=== PATIENT | female | born 1960 | race Caucasian/White ===

== ENCOUNTER → 2017-08-25 12:53 | Outpatient (CLI) | payer BC, SELFPAY | PROVIDERS: PCP Family Medicine; Visit Provider Family Medicine | DX: N39.0 Urinary tract infection, site not specified (principal); Z53.9 Procedure and treatment not carried out, unspecified reason ==

== ENCOUNTER → 2018-04-03 09:49 | Outpatient (CLI) | payer BC, SELFPAY ==
--- NOTE | 2018-04-03 | DI.MG.S_ITS ---
BILATERAL DIGITAL SCREENING MAMMOGRAM 3D/2D WITH CAD: 04/03/2018 CLINICAL: Routine screening. Comparison is made to exams dated: 02/16/2017 mammogram, 02/14/2016 mammogram, and 04/24/2014 mammogram - [facility]. There are scattered fibroglandular elements in both breasts. Current study was also evaluated with a Computer Aided Detection (CAD) system. There is a focal asymmetry in the right breast at 4 o'clock middle depth. No other significant masses, calcifications, or other findings are seen in either breast. IMPRESSION: INCOMPLETE: NEEDS ADDITIONAL IMAGING EVALUATION The focal asymmetry in the right breast is indeterminate. Additional views with possible ultrasound are recommended. This exam was interpreted at Station ID: [id number]. NOTE: For mammograms, a report in lay terms will be sent to the patient. Approximately 15% of breast malignancies will not be visualized mammographically. In the management of a palpable breast mass, a negative mammogram must not discourage biopsy of a clinically suspicious lesion. Electronically Signed By: Heaven bolivar/sandro:04/05/2018 10:07:18 letter sent: Additional Imaging Needed ACR BI-RADS Category 0: Incomplete [id number]
== END ==
PROVIDERS: PCP Student in an Organized Health Care Education/Training Program; Visit Provider Student in an Organized Health Care Education/Training Program
DX: Z12.31 Encounter for screening mammogram for malignant neoplasm of breast (principal)
CPT/HCPCS: 77063; 77067

== ENCOUNTER → 2018-04-21 14:09 | Outpatient (CLI) | payer BC, SELFPAY ==
--- NOTE | 2018-04-21 14:14 | DI.MG.S_ITS ---
UNILATERAL RIGHT DIGITAL DIAGNOSTIC MAMMOGRAM 3D/2D WITH ADDITIONAL VIEWS: 04/21/2018 CLINICAL: Additional evaluation requested from prior study. Comparison is made to exams dated: 04/03/2018 mammogram, 02/16/2017 mammogram, and 02/14/2016 mammogram - [facility]. There are scattered fibroglandular elements in right breast. Previously identified focal asymmetry in the right breast at 4 o'clock middle depth on comparison screening mammograms persists with additional views. There are adjacent calcifications and surrounding architectural distortion best seen on RSCCBTO (spot RCC tomosynthesis) image . IMPRESSION: INCOMPLETE: NEEDS ADDITIONAL IMAGING EVALUATION Previously identified focal asymmetry in the right breast at 4 o'clock middle depth with associated architectural distortion and calcifications on comparison screening mammograms persists with additional views. A targeted ultrasound is recommended for further evaluation, and will be performed immediately following this exam. This exam was interpreted at Station ID: [id number]. NOTE: For mammograms, a report in lay terms will be sent to the patient. Approximately 15% of breast malignancies will not be visualized mammographically. In the management of a palpable breast mass, a negative mammogram must not discourage biopsy of a clinically suspicious lesion. Electronically Signed By: Layton Ortiz M.D. ecl/:04/21/2018 16:06:32 letter sent: Additional Imaging Needed ACR BI-RADS Category 0: Incomplete [id number]
--- NOTE | 2018-04-21 14:14 | DI.US.S_ITS ---
LIMITED ULTRASOUND OF RIGHT BREAST: 04/21/2018 CLINICAL: Patient returns for additional imaging over a suspected abnormality in the right breast. Comparison is made to exams dated: 04/21/2018 mammogram, 04/03/2018 mammogram, and 02/16/2017 mammogram - [facility]. Real-time and Doppler ultrasound of the right breast lower inner quadrant were performed. Sow scale images of the real-time examination were reviewed. There is 1.5 cm x 1.2 cm x 0.8 cm irregular mass with an indistinct margin in the right breast at 4 o'clock 5 cm from the nipple. This irregular mass is hypoechoic with internal echoes and posterior acoustic enhancement. This may or may not correlate with mammography findings. Color flow imaging demonstrates that there is no vascularity present. Targeted ultrasound of the right axilla demonstrates no lymphadenopathy. IMPRESSION: SUSPICIOUS OF MALIGNANCY The 1.5 cm x 1.2 cm x 0.8 cm irregular mass versus cluster of irregular microcysts in the right breast is at a low suspicion for malignancy. An ultrasound guided biopsy is recommended. Post-biopsy correlation of the location of the clip with the location of the architectural distortion seen in the inner right breast seen on diagnostic mammography recommended; consider stereotactic biopsy if the ultrasound detected mass does not correlate with the distortion seen on mammography. These results and recommendations were discussed with the patient at the time of the exam by the [facility] Radiologist Dr. Irving Cesar in person. This exam was interpreted at Station ID: [id number]. Electronically Signed By: Layton Ortiz M.D. ecl/:04/21/2018 16:51:51 letter sent: Biopsy Required Ultrasound BI-RADS: 4a Suspicious abnormality - low suspicion for malignancy
== END ==
PROVIDERS: PCP Student in an Organized Health Care Education/Training Program; Visit Provider Student in an Organized Health Care Education/Training Program
DX: R92.8 Other abnormal and inconclusive findings on diagnostic imaging of breast (principal); N64.89 Other specified disorders of breast
CPT/HCPCS: 76642; 77065; G0279

== ENCOUNTER → 2018-05-03 08:22 | Outpatient (CLI) | payer BC, SELFPAY ==
--- NOTE | 2018-05-03 | DI.US.S_ITS ---
PROCEDURE: US BX BREAST PERC W VAC DEVICE COMPARISON: None. INDICATIONS: RIGHT BREAST MASS FINDINGS: IMPRESSION: Dictated by: Navid Lui M.D. on 05/03/2018 at 14:16 Approved by: Navid Lui M.D. on 05/03/2018 at 14:17
--- NOTE | 2018-05-03 | PATH_ITS ---
[facility] Accession Number: [id number] . 01 Material submitted: . RIGHT BREAST . 01 Clinical history: . MASS, 4 O'CLOCK, 5CM FROM NIPPLE . 02 Diagnosis: Right Breast, 4 o'clock Mass, 5 cm from Nipple, Core Needle Biopsies: Benign breast parenchyma with microcysts, usual ductal hyperplasia, fibroadenomatoid changes, apocrine metaplasia, and fibrosis, consistent with fibrocystic change. Microcalcifications not identified. Negative for atypical hyperplasia, in situ or invasive carcinoma. [facility]/05/04/2018 . 02 Electronically signed: . Tasneem Ldeesma MD, Pathologist NPI- [id number] . 01 Gross description: . Received one formalin-filled container labeled with the patient's name and designated right breast mass 4 o'clock, 5 cm from nipple. The specimen is received with plastic filter in container, sample loose in container. The specimen consists of multiple yellow-lane portions of tissue, which aggregate to 1.5 x 1.0 x 0.3 cm. The specimen is entirely submitted in one cassette. Collection date is 05/03/2018. Collection time per container is 0920. Total fixation time is 12 hours up to 24. ([facility]:[id number]) /[facility] . 02 Pathologist provided ICD-10: N63.10 . 02 CPT . 804522 Performed at: 01 [facility] [address] [facility], [place], [place] [id number] MD Rene Gómez MD Phone: [phone] Performed at: 02 [facility] [address] [place], [place] [id number] MD Tasneem Ledesma MD Phone: [phone]
--- NOTE | 2018-05-03 | DI.MG.S_ITS ---
UNILATERAL RIGHT DIGITAL DIAGNOSTIC MAMMOGRAM POST-NEEDLE BIOPSY: 05/03/2018 CLINICAL: Post clip placement. Right breast mass. Comparison is made to exams dated: 04/21/2018 mammogram, 04/03/2018 mammogram, and 02/16/2017 mammogram - [facility]. There are scattered fibroglandular elements in right breast. There is a marker clip in the appropriate position in the right breast at 4 o'clock middle depth. This is demonstrated by prior ultrasound. IMPRESSION: POST PROCEDURE MAMMOGRAM FOR MARKER PLACEMENT There was a successful marker clip placement in the right breast middle depth. This exam was interpreted at Station ID: [id number]. NOTE: For mammograms, a report in lay terms will be sent to the patient. Approximately 15% of breast malignancies will not be visualized mammographically. In the management of a palpable breast mass, a negative mammogram must not discourage biopsy of a clinically suspicious lesion. Electronically Signed By: Navid churchill/:05/03/2018 09:53:07 ACR BI-RADS Category Post-procedure mammogram for marker placement
== END ==
PROVIDERS: PCP Student in an Organized Health Care Education/Training Program; Visit Provider Student in an Organized Health Care Education/Training Program
DX: N60.31 Fibrosclerosis of right breast (principal); N60.81 Other benign mammary dysplasias of right breast; D24.1 Benign neoplasm of right breast
CPT/HCPCS: 19083; 77065

== ENCOUNTER → 2018-05-28 10:52 | Outpatient (CLI) | payer BC, SELFPAY ==
[2018-05-28 11:35] LABS: Add Manual Diff / Slide Review NO; Basophils Absolute Auto 100 /uL (0-100); Eosinophils Absolute Auto 200 /uL (0-450); Eosinophils Percent Auto 3.2 % (2-4); Hematocrit 45.1 % (36-46); Hemoglobin 14.6 g/dL (12.0-16.0); Lymphocytes Absolute Auto 2200 /uL (1100-4500); Lymphocytes Percent Auto 29.8 % (25-40); Mean Corpuscular HGB Conc 32.5 % (30-36); Mean Corpuscular Hemoglobin 27.3 PG (26-34); Mean Corpuscular Volume 84.1 fL (80-100); Monocytes Absolute Auto 300 /uL (0-900); Monocytes Percent Auto 3.7 % (3-14); Neutrophils Absolute Auto 4600 /uL (1500-7000); Neutrophils Percent Auto 62.3 % (50-75); Platelet Count 262 X10^3/uL (150-400); Red Blood Cell Count 5.36 X10^6/uL (4.0-5.2); Red Cell Distribution Width 14.1 % (11.6-14.8); White Blood Cell Count 7.4 X10^3/uL (4.5-11.0)
[2018-05-28 12:15] LABS: Alanine Aminotransferase 26 IU/L (9-52); Albumin 4.5 g/dL (3.5-5.0); Albumin Globulin Ratio 1.5 (1.0-2.8); Alkaline Phosphatase 74 U/L (38-126); Aspartate Aminotransferase 24 IU/L (14-36); BUN Creatinine Ratio 21.4 (6-22); Bilirubin Total 0.4 mg/dL (0.2-1.3); Blood Urea Nitrogen 15 mg/dL (7-17); Calcium 9.5 mg/dL (8.4-10.2); Carbon Dioxide 24 mmol/L (22-32); Chloride 103 mmol/L (98-107); Estimated Glomerular Filt Rate > 60.0 mL/min (>60); Glucose 106 mg/dL (70-100); HEMOLYSIS < 15 (0-50); Potassium 4.2 mmol/L (3.4-5.1); Sodium 140 mmol/L (137-145); Total Protein 7.5 g/dL (6.3-8.2)
[2018-05-28 12:31] LABS: Vitamin D 25 Hydroxy (D3) 37.6 ng/mL (30.0-100.0)
[2018-05-28 13:05] LABS: TSH w/ Reflex to FT4 1.09 uIU/mL (0.47-4.68)
== END ==
PROVIDERS: PCP Student in an Organized Health Care Education/Training Program; Visit Provider Student in an Organized Health Care Education/Training Program
DX: E55.9 Vitamin D deficiency, unspecified (principal); I10 Essential (primary) hypertension; J32.9 Chronic sinusitis, unspecified; R63.5 Abnormal weight gain; Z79.899 Other long term (current) drug therapy
CPT/HCPCS: 36415; 80053; 82306; 84443; 85025

== ENCOUNTER → 2018-06-18 11:15 | Outpatient (CLI) | payer BC, SELFPAY ==
[2018-06-18 12:27] LABS: Add Manual Diff / Slide Review NO; Basophils Absolute Auto 100 /uL (0-100); Basophils Percent Auto 0.9 % (0-2); Eosinophils Absolute Auto 200 /uL (0-450); Eosinophils Percent Auto 3.2 % (2-4); Hematocrit 43.3 % (36-46); Hemoglobin 13.9 g/dL (12.0-16.0); Lymphocytes Absolute Auto 2600 /uL (1100-4500); Lymphocytes Percent Auto 34.8 % (25-40); Mean Corpuscular HGB Conc 32.1 % (30-36); Mean Corpuscular Hemoglobin 26.7 PG (26-34); Mean Corpuscular Volume 83.2 fL (80-100); Monocytes Absolute Auto 300 /uL (0-900); Monocytes Percent Auto 4.2 % (3-14); Neutrophils Absolute Auto 4200 /uL (1500-7000); Neutrophils Percent Auto 56.9 % (50-75); Platelet Count 280 X10^3/uL (150-400); Red Cell Distribution Width 14.3 % (11.6-14.8); White Blood Cell Count 7.5 X10^3/uL (4.5-11.0)
== END ==
PROVIDERS: Registered Nurse; PCP Student in an Organized Health Care Education/Training Program; Visit Provider Student in an Organized Health Care Education/Training Program
DX: M71.9 Bursopathy, unspecified (principal)
CPT/HCPCS: 36415; 85025

== ENCOUNTER → 2018-06-22 13:29 | Outpatient (CLI) | payer BC, SELFPAY ==
[2018-06-26 18:27] LABS: ANCA Screen Negative (Negative)
== END ==
PROVIDERS: PCP Student in an Organized Health Care Education/Training Program; Visit Provider Student in an Organized Health Care Education/Training Program
DX: J34.89 Other specified disorders of nose and nasal sinuses (principal)
CPT/HCPCS: 36415; 86021

== ENCOUNTER → 2019-01-05 12:47 | Outpatient (CLI) | payer BC, MEDICARE, SELFPAY ==
--- NOTE | 2019-01-05 12:50 | DI.RAD.S_ITS ---
PROCEDURE: XR HIP W PEL IF DONE LT MIN 4V INDICATIONS: radicular pain/lower back pain TECHNIQUE: AP pelvis with lateral view(s) of the bilateral hip(s). COMPARISON: [facility], , HIP 2V RIGHT, 12/12/2008, 18:29. FINDINGS: Bones: No fractures or dislocations. Pelvic ring appears intact. No suspicious bony lesions. Posterior spinal fixation hardware is partially visualized. Soft tissues: The visualized bowel gas pattern is normal. No suspicious soft tissue calcifications. IMPRESSION: No acute radiographic findings. If there is continued pain, followup exam or additional imaging such as MRI or CT could be performed for further assessment. Dictated by: Heaven Trinh M.D. on 01/05/2019 at 17:39 Approved by: Heaven Trinh M.D. on 01/05/2019 at 17:40
--- NOTE | 2019-01-05 12:50 | DI.RAD.S_ITS ---
PROCEDURE: XR LUMBAR SPINE MIN 4V INDICATIONS: radicular pain/lower back pain TECHNIQUE: 5 views of the lumbar spine were acquired. COMPARISON: [facility], MR, L-SPINE WITHOUT CONTRAST, 10/11/2013, 17:13. [facility], CT, KIDNEY/ URETER/BLADDER, 12/20/2007, 8:17. FINDINGS: Bones: There are 5 [id number] lumbar vertebral bodies. Patient is status post posterior fixation and discectomy at L4-5 and L5-S1. There is grade I L1 on L2 retrolisthesis and grade I L4 on L5 anterolisthesis. Intervertebral disc space narrowing, osteophytosis, and facet sclerosis is present throughout the lumbar spine. Soft tissues: Overlying bowel gas pattern is normal. No suspicious soft tissue calcifications. Oblique images: No pars defects were visualized. L4-5 and L5-S1 are poorly characterize given postsurgical changes. IMPRESSION: Spondylolisthesis as above. No definite findings to suggest spondylolysis; however L4-5 and L5-S1 are poorly characterized given postsurgical changes. Dictated by: Heaven Trinh M.D. on 01/05/2019 at 17:40 Approved by: Heaven Trinh M.D. on 01/05/2019 at 17:53
== END ==
PROVIDERS: PCP Student in an Organized Health Care Education/Training Program; Visit Provider Physical Medicine & Rehabilitation
DX: M54.5 Low back pain (principal); M54.16 Radiculopathy, lumbar region; M53.3 Sacrococcygeal disorders, not elsewhere classified; G89.29 Other chronic pain; Z98.1 Arthrodesis status
CPT/HCPCS: 72110; 73522

== ENCOUNTER → 2019-01-11 17:19 | Outpatient (CLI) | payer BC, MEDICARE, SELFPAY ==
--- NOTE | 2019-01-11 17:33 | DI.MRI.S_ITS ---
PROCEDURE: MR LUMBAR SPINE WO CON INDICATIONS: LOW BACK AND LEFT HIP PAIN. Sacroiliac dysfunction. Pain greater than 3 months. Acute exacerbation of chronic low back. This TECHNIQUE: Noncontrast sagittal T1 spin echo and T2 fast echo, sagittal STIR, axial T1 and T2 fast spin echo through the lumbar spine. Axial and oblique coronal T1 spin echo and STIR through the sacrum. In cases with scoliosis, additional coronal T2 fast spin echo may be performed. COMPARISON: [facility], MR, L-SPINE WITHOUT CONTRAST, 10/11/2013, 17:13. [facility], CR, XR LUMBAR SPINE MIN 4V, 01/05/2019, 15:59. [facility], MR, L-SPINE WITHOUT CONTRAST, 03/08/2012, 16:55. [facility], MR, L-SPINE WITHOUT CONTRAST, 10/23/2010, 8:41. [facility], MR, L-SPINE WITHOUT CONTRAST, 11/16/2008, 9:03. FINDINGS: Image quality: Excellent. Alignment and Curvature: There is grade 1 anterolisthesis seen at L4-L5. Minimal retrolisthesis is seen at T12-L1, L1-L2, and L3-L4. Bone Marrow: Marrow is of normal overall signal. No acute vertebral body compression fractures. No sacral fractures. Spinal Cord: Conus medullaris terminates at the L1 level. Visualized cord demonstrates normal signal and size. Paraspinous Soft Tissues: No paravertebral masses. T12-L1: Moderate to severe loss of disc height and disc signal are seen. Bridging endplate osteophytes are seen. Moderate generalized disc bulge is seen. At least moderate bilateral neural foraminal narrowing is seen. When comparison is made with the prior examination, these findings are similar. L1-L2: Moderate loss of disc height is seen. Loss of disc signal is seen. Moderate disc bulge is seen, with a central/left disc extrusion, with inferior migration of the disc material. Moderate facet joint hypertrophy is seen. Moderate to severe bilateral neural foraminal narrowing is seen. There is a degree of compression seen upon the exiting nerve roots. Moderate to severe central canal narrowing is seen. These imaging findings have progressed compared to the prior study. L2-L3: Mild to moderate loss of disc height and disc signal are seen. Moderate bulge is seen, which is eccentric to the right. There is moderate to severe right-sided and mild left-sided facet hypertrophy seen. There is moderate to severe right-sided neural foraminal narrowing seen, with a degree of compression upon the exiting right L2 nerve root. There is moderate left-sided neural foraminal narrowing seen. Moderate central canal narrowing is seen. These imaging findings have progressed compared to the prior study. L3-L4: Mild to moderate loss of disc height and disc signal are seen. Moderate to prominent disc bulge is seen, which is eccentric to the right. Moderate facet hypertrophy is seen. There is moderate to severe bilateral neural foraminal narrowing seen, right worse than left. There is a degree of compression seen upon the exiting nerve roots. Moderate to severe central canal narrowing is seen. These degenerative findings are worse than in 2014. L4-L5: Moderate to severe loss of disc height and disc signal are seen. A disc spacer is seen at this level. Severe facet hypertrophy is seen. Moderate to severe bilateral neural foraminal narrowing is seen, left worse than right. There is a degree of compression seen upon the exiting nerve roots. Moderate to severe central canal narrowing is seen. These degenerative changes are worse than on the prior MRI. L5-S1: Moderate to severe loss of disc height and disc signal are seen. There is a disc spacer is seen at this level. Moderate generalized disc bulge is seen. Moderate to prominent facet hypertrophy is seen. Moderate to severe bilateral neural foraminal narrowing is seen, with associated bilateral nerve root compression. There is moderate to severe central canal narrowing seen. These imaging findings have progressed compared to the prior study. Sacrum: No significant abnormality of the sacrum can be seen. No significant sacroiliac joint edema can be seen. No abnormalities of the sacral plexus are detected. IMPRESSION: Multiple levels of prominent lumbar spine degenerative change are seen, which have clearly progressed compared to 2014. There is a central/left extrusion seen at the L1-L2 level, with inferior migration of disc material. Dictated by: Alexi Russell M.D. on 01/12/2019 at 8:10 Approved by: Alexi Russell M.D. on 01/12/2019 at 8:20
== END ==
PROVIDERS: Family Provider Student in an Organized Health Care Education/Training Program; PCP Student in an Organized Health Care Education/Training Program; Visit Provider Registered Nurse
DX: M25.552 Pain in left hip (principal); M47.816 Spondylosis without myelopathy or radiculopathy, lumbar region; M51.26 Other intervertebral disc displacement, lumbar region; M53.3 Sacrococcygeal disorders, not elsewhere classified
CPT/HCPCS: 72148

== ENCOUNTER → 2019-03-03 12:04 | Outpatient (CLI) | payer BC, MEDICARE, SELFPAY ==
[2019-03-03 12:44] LABS: Bacteria Urine None Seen; WBC Urine None Seen (0-5/HPF)
[2019-03-03 13:13] LABS: Erythrocyte Sedimentation Rate 6 MM/HR (0-20)
[2019-03-03 13:41] LABS: Appearance Urine UA CLOUDY; Bilirubin Urine UA NEGATIVE (NEGATIVE); Color Urine UA YELLOW; Glucose Urine UA NEGATIVE (Negative); Ketones Urine UA NEGATIVE (NEGATIVE); Leukocyte Esterase Urine UA NEGATIVE (NEGATIVE); Nitrite Urine UA NEGATIVE (Negative); Occult Blood Urine UA 3+ (Negative); Protein Urine UA TRACE (Negative); Specific Gravity Urine UA 1.015 (1.000-1.035); Urobilinogen Urine UA 0.2 E.U./dL (0.2)
[2019-03-03 14:08] LABS: pH Urine UA 7.5 (4.5-8.0)
[2019-03-03 14:11] LABS: RBC Urine 30-100/HPF (0-5/HPF)
[2019-03-03 14:12] LABS: Culture Indicated Urine Cult Not Indicated; Squamous Epithelial Cell Urine 5-10 /HPF (0-5/HPF)
[2019-03-03 14:28] LABS: Alanine Aminotransferase 23 IU/L (<35); Albumin 4.1 g/dL (3.5-5.0); Albumin Globulin Ratio 1.8 (1.0-2.8); Alkaline Phosphatase 70 U/L (38-126); Aspartate Aminotransferase 31 IU/L (14-36); BUN Creatinine Ratio 28.3 (6-22); Bilirubin Total 0.5 mg/dL (0.2-1.3); Blood Urea Nitrogen 17 mg/dL (7-17); Calcium 9.8 mg/dL (8.4-10.2); Carbon Dioxide 25 mmol/L (22-32); Chloride 101 mmol/L (98-107); Estimated Glomerular Filt Rate > 60.0 mL/min (>60); Gamma Glutamyl Transpeptidase 47 U/L (12-43); Globulin 2.3 g/dL (1.7-4.1); Glucose 109 mg/dL (70-100); HEMOLYSIS 49 (0-50); Potassium 4.5 mmol/L (3.4-5.1); Sodium 137 mmol/L (137-145); Total Protein 6.4 g/dL (6.3-8.2)
[2019-03-03 14:31] LABS: Add Manual Diff / Slide Review NO; Basophils Absolute Auto 100 /uL (0-100); Basophils Percent Auto 1.5 % (0-2); Eosinophils Absolute Auto 300 /uL (0-450); Eosinophils Percent Auto 3.2 % (2-4); Hematocrit 41.9 % (36-46); Hemoglobin 14.1 g/dL (12.0-16.0); Lymphocytes Absolute Auto 2700 /uL (1100-4500); Lymphocytes Percent Auto 29.8 % (25-40); Mean Corpuscular HGB Conc 33.6 % (30-36); Mean Corpuscular Hemoglobin 28.2 PG (26-34); Mean Corpuscular Volume 83.8 fL (80-100); Monocytes Absolute Auto 500 /uL (0-900); Monocytes Percent Auto 5.3 % (3-14); Neutrophils Absolute Auto 5500 /uL (1500-7000); Neutrophils Percent Auto 60.2 % (50-75); Platelet Count 221 X10^3/uL (150-400); Red Cell Distribution Width 14.2 % (11.6-14.8); White Blood Cell Count 9.1 X10^3/uL (4.5-11.0)
== END ==
PROVIDERS: PCP Student in an Organized Health Care Education/Training Program; Visit Provider Student in an Organized Health Care Education/Training Program
DX: R10.2 Pelvic and perineal pain (principal); R10.9 Unspecified abdominal pain; R19.7 Diarrhea, unspecified
CPT/HCPCS: 36415; 80053; 81001; 82977; 85025; 85651

== ENCOUNTER → 2019-03-07 16:04 | Outpatient (CLI) | payer BC, MEDICARE, SELFPAY ==
[2019-03-07 17:58] LABS: Occult Blood 1 Negative (Negative); Occult Blood 2 Negative (Negative)
[2019-03-07 17:59] LABS: Occult Blood 3 Negative (Negative)
[2019-03-13 15:44] LABS: Calprotectin, Stool 57.7 mcg/g
== END ==
PROVIDERS: PCP Student in an Organized Health Care Education/Training Program; Visit Provider Student in an Organized Health Care Education/Training Program
DX: R10.2 Pelvic and perineal pain (principal); R10.9 Unspecified abdominal pain; R19.7 Diarrhea, unspecified
CPT/HCPCS: 82270; 83993; 86677

== ENCOUNTER → 2019-03-10 11:48 | Outpatient (CLI) | payer BC, MEDICARE, SELFPAY ==
--- NOTE | 2019-03-10 12:11 | DI.CT.S_ITS ---
PROCEDURE: CT ABDOMEN PELVIS WO/W CON INDICATIONS: Symptomatic Microscopic hematuria TECHNIQUE: Optional 5 mm thick noncontrast images acquired from the diaphragm to the symphysis pubis. After the administration of intravenous contrast, 5 mm thick images acquired from the diaphragm to the symphysis pubis after a 10-minute delay. 2 mm thick coronal and sagittal reformats were then performed of the kidneys and ureters. For radiation dose reduction, the following was used: automated exposure control, adjustment of mA and/or kV according to patient size. COMPARISON: CT [facility] 12/20/2007. CT abdomen pelvis 10/06/2001. FINDINGS: Image quality: Excellent. Lung bases: Lung bases are clear. Heart size is normal. Urinary system: Both kidneys are normal in size. Mild left-sided hydronephrosis. There is an obstructing calculus in the right ureteropelvic junction measuring 9 mm, (2/41). Ureteral irregularity at this site, (/54) most likely due to inflammation. There is normal bilateral renal enhancement. Renal calyces appear normal in morphology when filled with contrast. Small left peripelvic cyst. Bladder wall thickness is normal. No calcified bladder stones. Other solid organs: Liver is normal in size. Hepatic steatosis. Gallbladder is mildly distended. No calcified gallstones seen. Biliary system is non dilated. Pancreas enhances normally. Spleen is normal in size and enhancement. No adrenal nodules. Peritoneum and bowel: Bowel loops demonstrate normal wall thickness and caliber. Mild sigmoid colon diverticulosis. No free fluid or air. Nodes and vessels: No retroperitoneal or mesenteric adenopathy by size criteria. Aorta and inferior vena cava are normal in size. Abdominal wall: Small fat-containing periumbilical hernia. Pelvis: No pathologic free pelvic fluid. No inguinal hernias or adenopathy. Bones: No suspicious bony lesions. No vertebral body compression fractures. Pedicle screws at L4-L5 and L5-S1. Intervertebral body spacer at L5-S1 and possibly L4-L5. IMPRESSION: 1. Right UPJ obstructing calculus measuring 9 mm. Mild right-sided hydronephrosis. 2. Adjacent irregularity in the proximal right ureter is likely related to inflammatory change. 3. Hepatic steatosis. Comment: Findings were discussed with Kristine on behalf of Presley Valdovinos at the time of dictation. Dictated by: Daniele Healy M.D. on 03/10/2019 at 12:54 Approved by: Daniele Healy M.D. on 03/10/2019 at 13:20
== END ==
PROVIDERS: PCP Student in an Organized Health Care Education/Training Program; Visit Provider Student in an Organized Health Care Education/Training Program
DX: R31.29 Other microscopic hematuria (principal); N13.2 Hydronephrosis with renal and ureteral calculous obstruction; K76.0 Fatty (change of) liver, not elsewhere classified
CPT/HCPCS: 74178; Q9967

== ENCOUNTER → 2019-03-23 19:35 | Outpatient (CLI) | payer BC, MEDICARE, SELFPAY ==
--- NOTE | 2019-03-23 19:38 | DI.MRI.S_ITS ---
PROCEDURE: MR HEAD/BRAIN WO CON INDICATIONS: New onset of daily headaches since December 2018 TECHNIQUE: Noncontrast axial T1 spin echo, axial T2 fast spin echo, sagittal and axial FLAIR, coronal T2 fast spin echo, axial gradient echo, axial diffusion and ADC through the brain. COMPARISON: [facility], CT, HEAD WITHOUT CONTRAST, 12/18/2016, 9:53. FINDINGS: Image quality: Excellent. CSF Spaces: Basal cisterns are patent. No extra-axial fluid collections. Ventricles are normal in size and shape. Brain: No intracranial masses or hemorrhage. Sow/white matter interface is normal. Brainstem appears normal. Diffusion-weighted images demonstrate no acute ischemic insult. No chronic ischemic insults. Normal intravascular flow voids are present. Skull and face: Calvarium has normal marrow signal. Orbits appear normal. Sinuses: Sinuses and mastoids are clear. IMPRESSION: Normal for age, a source of new onset daily headaches is not found. Dictated by: Irving Cesar M.D. on 03/25/2019 at 8:07 Approved by: Irving Cesar M.D. on 03/25/2019 at 8:09
== END ==
PROVIDERS: PCP Student in an Organized Health Care Education/Training Program; Visit Provider Family Medicine
DX: R51 Headache (principal)
CPT/HCPCS: 70551

== ENCOUNTER → 2019-04-04 13:51 | Outpatient (CLI) | payer BC, MEDICARE, SELFPAY ==
[2019-04-04 14:09] LABS: Bacteria Urine None Seen
[2019-04-04 14:37] LABS: Appearance Urine UA CLEAR; Bilirubin Urine UA NEGATIVE (NEGATIVE); Color Urine UA YELLOW; Glucose Urine UA NEGATIVE (Negative); Ketones Urine UA NEGATIVE (NEGATIVE); Leukocyte Esterase Urine UA NEGATIVE (NEGATIVE); Nitrite Urine UA NEGATIVE (Negative); Occult Blood Urine UA 1+ (Negative); Protein Urine UA NEGATIVE (Negative); Specific Gravity Urine UA 1.015 (1.000-1.035); Urobilinogen Urine UA 0.2 E.U./dL (0.2)
[2019-04-04 14:58] LABS: RBC Urine 5-10/HPF (0-5/HPF); Squamous Epithelial Cell Urine 1-5 /HPF (0-5/HPF); WBC Urine 0-1/HPF (0-5/HPF); pH Urine UA 6.5 (4.5-8.0)
[2019-04-04 14:59] LABS: Culture Indicated Urine Cult Not Indicated; Mucus Urine 1+ (Negative)
== END ==
PROVIDERS: PCP Student in an Organized Health Care Education/Training Program; Visit Provider Urology
DX: N20.1 Calculus of ureter (principal)
CPT/HCPCS: 81001

== ENCOUNTER → 2019-04-13 16:43 | Outpatient (CLI) | payer BC, MEDICARE, SELFPAY ==
--- NOTE | 2019-04-13 16:48 | DI.MRI.S_ITS ---
PROCEDURE: MR KNEE LT WO CON INDICATIONS: Left knee pain TECHNIQUE: Noncontrast sagittal PD fast spin echo and T2 fast spin echo with fat saturation, sagittal 3-D FLASH with fat saturation; coronal T1 spin echo and PD fast spin echo with fat saturation, and axial PD fast spin echo with fat saturation through the knee. COMPARISON: [facility], MR, LOWER EXTREM. JNT WO CONTRAST, 08/22/2011, 20:47. [facility], CR, KNEE 3V LEFT, 08/12/2011, 9:45. FINDINGS: Image quality: Excellent. Menisci: There is medial extrusion of the medial meniscus. Linear oblique high T2 signal intensity traverses the posterior horn and body of the medial meniscus, demonstrating inferior articular surface extension, indicating oblique tearing. Lateral meniscus is intact. Cruciate ligaments: The anterior and posterior cruciate ligaments appear intact. Medial structures: The medial collateral ligament appears intact. Visualized portions of the pes anserinus tendons appear normal. No abnormal bursal fluid. Lateral structures: The lateral collateral ligament, long and short heads of the biceps femoris tendon appear intact. The popliteus tendon appears normal. Iliotibial band appears normal. Anterior structures: The quadriceps and patellar tendons appear intact. Patellar alignment is normal. No femoral trochlear dysplasia or ventral trochlear prominence. No edema in the infrapatellar fat pad. Bones and cartilage: No bone marrow contusions or fractures. Mild tricompartmental periarticular osteophyte formation. Moderate diffuse articular cartilage loss overlies the weightbearing aspects of the medial femoral condyle and medial tibial plateau. Mild diffuse articular cartilage loss overlies the weightbearing aspect of the lateral femoral condyle and lateral tibial plateau. There is a superimposed 6 mm diameter region of high grade articular cartilage loss overlying the posterior weightbearing aspects of the lateral femoral condyle. Articular cartilage fibrillation overlies the medial patellar facet. Joint space: There is a small knee joint effusion and a trace Cedillo's cyst. Normal appearing synovial plicae are incidentally noted. IMPRESSION: 1. Tricompartmental osteoarthritis with associated articular cartilage loss. 2. Medial meniscal tear. 3. Small knee joint effusion and trace Cedillo's cyst. Dictated by: Carlene Arzate M.D. on 04/14/2019 at 8:50 Approved by: Carlene Arzate M.D. on 04/14/2019 at 8:56
== END ==
PROVIDERS: PCP Student in an Organized Health Care Education/Training Program; Visit Provider Student in an Organized Health Care Education/Training Program
DX: M25.562 Pain in left knee (principal); S83.242A Other tear of medial meniscus, current injury, left knee, initial encounter; M17.12 Unilateral primary osteoarthritis, left knee; M25.462 Effusion, left knee
CPT/HCPCS: 73721

== ENCOUNTER → 2019-08-12 12:36 | Outpatient (CLI) | payer BC, MEDICARE, SELFPAY ==
[2019-08-12 13:32] LABS: Add Manual Diff / Slide Review NO; Basophils Absolute Auto 100 /uL (0-100); Eosinophils Absolute Auto 200 /uL (0-450); Hematocrit 44.7 % (36-46); Hemoglobin 14.6 g/dL (12.0-16.0); Lymphocytes Absolute Auto 2000 /uL (1100-4500); Mean Corpuscular HGB Conc 32.6 % (30-36); Mean Corpuscular Hemoglobin 26.8 PG (26-34); Mean Corpuscular Volume 82.4 fL (80-100); Monocytes Absolute Auto 300 /uL (0-900); Monocytes Percent Auto 5.2 % (3-14); Neutrophils Absolute Auto 3400 /uL (1500-7000); Neutrophils Percent Auto 56.8 % (50-75); Platelet Count 213 X10^3/uL (150-400); Red Blood Cell Count 5.43 X10^6/uL (4.0-5.2); Red Cell Distribution Width 15.9 % (11.6-14.8); White Blood Cell Count 6.1 X10^3/uL (4.5-11.0)
[2019-08-12 14:42] LABS: Hemoglobin A1C% w Est Avg Glu 6.1 % (4.0-6.0)
[2019-08-12 14:49] LABS: Alanine Aminotransferase 24 IU/L (<35); Albumin 4.3 g/dL (3.5-5.0); Albumin Globulin Ratio 1.4 (1.0-2.8); Alkaline Phosphatase 83 U/L (38-126); Aspartate Aminotransferase 26 IU/L (14-36); BUN Creatinine Ratio 24.6 (6-22); Bilirubin Total 0.4 mg/dL (0.2-1.3); Blood Urea Nitrogen 17 mg/dL (7-17); Calcium 10.1 mg/dL (8.4-10.2); Carbon Dioxide 23 mmol/L (22-32); Chloride 105 mmol/L (98-107); Cholesterol 213 mg/dL (140-199); Estimated Glomerular Filt Rate > 60.0 mL/min (>60); Glucose 136 mg/dL (80-110); HDL Cholesterol 53 mg/dL (40-60); HEMOLYSIS 28 (0-50); LDL Cholesterol Calculated 116 mg/dL (<100); Potassium 4.3 mmol/L (3.4-5.1); Sodium 138 mmol/L (137-145); Total Protein 7.3 g/dL (6.3-8.2); Triglycerides 218 mg/dL (35-150)
[2019-08-12 15:18] LABS: TSH w/ Reflex to FT4 1.41 uIU/mL (0.47-4.68)
[2019-08-12 15:25] LABS: Ferritin 19 ng/mL (11-264)
[2019-08-12 15:55] LABS: Folate > 20.0 ng/mL (2.76-20.0); Vitamin B12 515 pg/mL (239-931)
[2019-08-12 16:02] LABS: Vitamin D 25 Hydroxy (D3) 27.3 ng/mL (30.0-100.0)
== END ==
PROVIDERS: PCP Student in an Organized Health Care Education/Training Program; Referring Provider Nurse Practitioner Family; Visit Provider Student in an Organized Health Care Education/Training Program
DX: I10 Essential (primary) hypertension (principal); E66.01 Morbid (severe) obesity due to excess calories; E78.5 Hyperlipidemia, unspecified; M25.50 Pain in unspecified joint; R60.9 Edema, unspecified; E55.9 Vitamin D deficiency, unspecified; F41.1 Generalized anxiety disorder; G43.909 Migraine, unspecified, not intractable, without status migrainosus; M85.80 Other specified disorders of bone density and structure, unspecified site; N20.0 Calculus of kidney
CPT/HCPCS: 36415; 80053; 80061; 82306; 82607; 82728; 82746; 83036; 84443; 85025

== ENCOUNTER → 2019-10-10 12:07 | Outpatient (CLI) | payer BC, MEDICARE, SELFPAY ==
[2019-10-10 13:46] LABS: Calcium 9.9 mg/dL (8.4-10.2); Magnesium 1.8 mg/dL (1.6-2.3)
[2019-10-11 08:09] LABS: Parathyroid Hormone Int 32 pg/mL (15-65)
[2019-10-13 08:36] LABS: Vitamin A 62.3 ug/dL (22.0-69.5)
[2019-10-13 09:09] LABS: Vitamin B1 150.2 nmol/L (66.5-200.0)
== END ==
PROVIDERS: PCP Student in an Organized Health Care Education/Training Program; Referring Provider Nurse Practitioner Family; Visit Provider Nurse Practitioner Family
DX: E66.01 Morbid (severe) obesity due to excess calories (principal); I10 Essential (primary) hypertension; E78.5 Hyperlipidemia, unspecified; R73.01 Impaired fasting glucose; E55.9 Vitamin D deficiency, unspecified; K91.2 Postsurgical malabsorption, not elsewhere classified; F41.1 Generalized anxiety disorder; G43.909 Migraine, unspecified, not intractable, without status migrainosus
CPT/HCPCS: 36415; 82310; 83735; 83970; 84425; 84590

== ENCOUNTER → 2019-10-13 09:49 | Outpatient (CLI) | payer BC, MEDICARE, SELFPAY ==
--- NOTE | 2019-10-13 | DI.MG.S_ITS ---
BILATERAL DIGITAL SCREENING MAMMOGRAM 3D/2D WITH CAD: 10/13/2019 CLINICAL: Routine screening. Comparison is made to exams dated: 05/03/2018 mammogram, 04/21/2018 mammogram, 04/03/2018 mammogram, and 02/16/2017 mammogram - [facility]. There are scattered fibroglandular elements in both breasts. Current study was also evaluated with a Computer Aided Detection (CAD) system. There is a benign focal asymmetry in the right breast. There also are benign calcifications in the right breast. Additionally, there is a biopsy clip in the right breast. No significant masses, calcifications, or other findings are seen in either breast. There has been no significant interval change. IMPRESSION: There is no mammographic evidence of malignancy. A 1 year screening mammogram is recommended. This exam was interpreted at Station ID: [id number]. NOTE: For mammograms, a report in lay terms will be sent to the patient. Approximately 15% of breast malignancies will not be visualized mammographically. In the management of a palpable breast mass, a negative mammogram must not discourage biopsy of a clinically suspicious lesion. Electronically Signed By: Sofiya oden/sandro:10/13/2019 14:27:06 letter sent: Normal Exam ACR BI-RADS Category 2: Benign Finding(s) [id number]
== END ==
PROVIDERS: PCP Student in an Organized Health Care Education/Training Program; Referring Provider Student in an Organized Health Care Education/Training Program; Visit Provider Student in an Organized Health Care Education/Training Program
DX: Z12.31 Encounter for screening mammogram for malignant neoplasm of breast (principal)
CPT/HCPCS: 77063; 77067

== ENCOUNTER → 2019-10-31 10:52 | Outpatient (CLI) | payer BC, MEDICARE, SELFPAY ==
--- NOTE | 2019-10-31 | DI.CT.S_ITS ---
PROCEDURE: CT LUMBAR SPINE WO CON INDICATIONS: Radiculopathy, lumbar region TECHNIQUE: Noncontrast 3 mm thick sections acquired from the T12 level to the sacrum. Sagittal and coronal reformats were constructed. For radiation dose reduction, the following was used: automated exposure control. Oblique coronal images were constructed through the sacrum. COMPARISON: [facility], MR, MR LUMBAR SPINE WO CON, 01/11/2019, 17:40. [facility], CT, CT ABDOMEN PELVIS WO/W CON, 03/10/2019, 12:03. FINDINGS: Image quality: Excellent. Bones: No acute vertebral body compression fractures. No suspicious lytic or blastic bony lesions. Central spinal caliber is of normal overall caliber. Mild grade 1 anterolisthesis is seen at the L1-L2 level. Minimal retrolisthesis is seen at the L3-L4 level. Grade 1 anterolisthesis is seen at the L4-L5 level. No associated pars defects are seen. Mild levoconvex scoliotic curvature is noted. Postoperative changes are seen, with disc spacers at L4-L5 and L5-S1. At L4-L5 and L5-S1, there are screws seen transfixing the facet joints. No findings of hardware failure or hardware loosening are seen. T12-L1: Moderate to severe loss of disc height can be seen. Vacuum disc phenomenon is seen at this level. Endplate irregularity and sclerosis can be seen. Moderate generalized disc bulge is seen. At least moderate right-sided and moderate left-sided neural foraminal narrowing can be seen. Mild central canal narrowing is seen. L1-L2: At least moderate loss of disc height and disc signal can be seen. Vacuum disc phenomenon is seen at this level. Endplate irregularity and sclerosis can be seen. Moderate disc bulge is seen. Mild central canal narrowing is seen. On the prior lumbar MRI, there was a large disc extrusion seen at this level. This disc extrusion is faintly seen, as on series 3 image 24. L2-L3: The disc height is relatively well-preserved. Vacuum disc phenomenon is seen at this level. Moderate generalized disc bulge is seen. There is moderate bilateral neural foraminal narrowing seen. Moderate central canal narrowing is seen. When comparison is made with the prior examination, these findings are similar. L3-L4: The disc height is relatively well-preserved. Vacuum disc phenomenon is seen at this level. Moderate generalized disc bulge is seen. There is moderate left-sided and moderate to severe right-sided neural foraminal narrowing seen. At least moderate central canal narrowing is seen. When comparison is made with the prior examination, these findings are similar. L4-L5: Postoperative changes are seen at this level. Moderate loss of disc height is seen. At least moderate disc bulge is seen. Prominent facet hypertrophy is seen. Moderate to severe bilateral neural foraminal narrowing is seen. Moderate to severe central canal narrowing is seen. When comparison is made with the prior examination, these findings are similar. L5-S1: Mild to moderate loss of disc height is seen. At least moderate disc bulge is seen. Moderate to prominent facet hypertrophy is seen. Moderate to severe bilateral neural foraminal narrowing can be seen. At least moderate central canal narrowing is seen. When comparison is made with the prior examination, these findings are similar. No significant abnormality of the sacrum is seen. Soft tissues: No retroperitoneal masses or hematomas. Visualized aorta is normal in caliber. Atherosclerotic calcification is noted. IMPRESSION: Lumbosacral postoperative change, without a significant complication identified. Faint visualization of the known L1-L2 disc extrusion. Dictated by: Alexi Russell M.D. on 10/31/2019 at 12:04 Approved by: Alexi Russell M.D. on 10/31/2019 at 12:14
== END ==
PROVIDERS: PCP Student in an Organized Health Care Education/Training Program; Referring Provider Orthopaedic Surgery Orthopaedic Surgery of the Spine; Visit Provider Orthopaedic Surgery Orthopaedic Surgery of the Spine
DX: M48.061 Spinal stenosis, lumbar region without neurogenic claudication (principal); M48.07 Spinal stenosis, lumbosacral region; M51.16 Intervertebral disc disorders with radiculopathy, lumbar region; M51.17 Intervertebral disc disorders with radiculopathy, lumbosacral region
CPT/HCPCS: 72131

== ENCOUNTER → 2020-01-21 13:55 | Outpatient (CLI) | payer BC, MEDICARE, SELFPAY ==
[2020-01-23 09:25] LABS: COVID19 Sendout Not Detected (Not Detect)
== END ==
PROVIDERS: PCP Student in an Organized Health Care Education/Training Program; Visit Provider Nurse Practitioner
DX: Z11.59 Encounter for screening for other viral diseases (principal)
CPT/HCPCS: 87635

== ENCOUNTER → 2020-03-06 10:47 | Outpatient (CLI) | payer BC, MEDICARE, SELFPAY ==
[2020-03-06 11:58] LABS: Add Manual Diff / Slide Review NO; Basophils Absolute Auto 0 /uL (0-100); Basophils Percent Auto 0.8 % (0-2); Eosinophils Absolute Auto 100 /uL (0-450); Eosinophils Percent Auto 2.1 % (2-4); Hematocrit 43.7 % (36-46); Lymphocytes Absolute Auto 1500 /uL (1100-4500); Lymphocytes Percent Auto 29.2 % (25-40); Mean Corpuscular HGB Conc 32.1 % (30-36); Mean Corpuscular Hemoglobin 26.9 PG (26-34); Mean Corpuscular Volume 83.7 fL (80-100); Monocytes Absolute Auto 300 /uL (0-900); Monocytes Percent Auto 5.5 % (3-14); Neutrophils Absolute Auto 3300 /uL (1500-7000); Neutrophils Percent Auto 62.4 % (50-75); Platelet Count 171 X10^3/uL (150-400); Red Blood Cell Count 5.22 X10^6/uL (4.0-5.2); Red Cell Distribution Width 14.8 % (11.6-14.8); White Blood Cell Count 5.3 X10^3/uL (4.5-11.0)
[2020-03-06 12:19] LABS: BUN Creatinine Ratio 20.3 (6-22); Blood Urea Nitrogen 15 mg/dL (7-17); Calcium 9.7 mg/dL (8.4-10.2); Carbon Dioxide 32 mmol/L (22-32); Chloride 103 mmol/L (98-107); Estimated Glomerular Filt Rate > 60.0 mL/min (>60); Glucose 111 mg/dL (80-110); HEMOLYSIS 20 (0-50); Potassium 4.2 mmol/L (3.4-5.1); Sodium 139 mmol/L (137-145)
== END ==
PROVIDERS: PCP Student in an Organized Health Care Education/Training Program; Referring Provider Orthopaedic Surgery Orthopaedic Surgery of the Spine; Visit Provider Orthopaedic Surgery Orthopaedic Surgery of the Spine
DX: Z01.818 Encounter for other preprocedural examination (principal); Z01.812 Encounter for preprocedural laboratory examination
CPT/HCPCS: 36415; 80048; 85025; 93005

== ENCOUNTER → 2020-04-02 09:00 | Outpatient (CLI) | payer BC, MEDICARE, SELFPAY ==
[2020-04-02 11:10] LABS: COVID19 -Nasal RAPID Negative (Negative)
== END ==
PROVIDERS: PCP Student in an Organized Health Care Education/Training Program; Visit Provider Physician Assistant
DX: Z11.59 Encounter for screening for other viral diseases (principal)
CPT/HCPCS: 87635

== ENCOUNTER 2020-04-04 06:39 | Inpatient (IN) | payer BC, MEDICARE, SELFPAY ==
[2020-03-29 12:51] VITALS: BMI 40.8
[2020-04-04] VITALS (19 sets, daily range): BP systolic 119–154; BP diastolic 51–87; PULSE 77–95; RESP 10–18; TEMP 35.9–36.8; O2SAT 91–98; BMI 40.8
--- NOTE | 2020-04-04 | DI.RAD.S_ITS ---
PROCEDURE: XR LUMBAR SPINE 2-3V INDICATIONS: L3-4 TLIF, L5-S1 TLIF TECHNIQUE: 2 intraoperative fluoroscopic views of the lumbar spine were acquired. COMPARISON: [facility], , XR LUMBAR SPINE MIN 4V, 01/05/2019, 15:59. FINDINGS: Intraoperative fluoroscopic images of lumbar spine shows fusion hardware present at L3 through S1 levels. IMPRESSION: Fluoro guidance was provided intraoperatively for fixation of lumbar spine as above. Dictated by: Navid Lui M.D. on 04/04/2020 at 13:25 Approved by: Navid Lui M.D. on 04/04/2020 at 13:29
[2020-04-04] MEDS: GABAPENTIN 600 MG TABLET PO ×3 (07:09→21:18)
[2020-04-04] MEDS: ACETAMINOPHEN 325 MG TABLET 975 MG PO (07:09)
[2020-04-04] MEDS: LACTATED RINGERS 1,000 ML 42 ML IV ×3 (07:12→10:50)
--- NOTE | 2020-04-04 07:30 | SUR.PREOP ---
Valuble pack given to YANCY Cruz in acute care, pt's own medication sent to pharmacy.
--- NOTE | 2020-04-04 07:47 | PM.PREOP ---
Pre-operative Note COVID-19 COVID-19 status: Negative Result date/Date tested (Pos, Neg/Pending): 04/02/20 Interval Note History & Physical reviewed/Exam performed by Physician: Yes Changes to H&P: No
[2020-04-04] MEDS: CLINDAMYCIN 900 MG/50 ML PIGGYBACK 50 MG IV ×2 (07:50→16:09)
--- NOTE | 2020-04-04 08:28 | SUR.OPER ---
Prone on spine table, head in foam head support, padded chest and pelvic supports, gel pad at knees, lower legs supported by pillows; nipples, genitalia and toes free of pressure, arms secured on foam padded arm boards at <90 degrees abduction. Tape over blanket at thigh secured to table.
[2020-04-04] MEDS: BUPIVACAINE LIPOSOME 266 MG/20 ML VIAL INJ (08:46)
[2020-04-04] MEDS: BUPIVACAINE 0.5% W/ EPI (PF) 30 ML VIAL INJ (08:47)
--- NOTE | 2020-04-04 13:21 | P.OP_ITS ---
Operative Date/Time/Diagnoses Date of procedure: 04/04/20 Time of procedure: 08:22 Pre-op diagnosis: 1. L3-4, L4-5, L5-S1 spinal stenosis 2. L4-5, L5-S1 spondylolisthesis 3. Hx of L4-5, L5-S1 instrumented fusion with pseudoarthrosis 4. L3-4, L4-5, L5-S1 spondylosis with radiculopathy 5. Lumbar hardware loosening Post-op diagnosis: same Procedure & Clinicians Procedure: 1. L3-4, L4-5, L5-S1 posterolateral and posterior interbody fusion 2. L3-4, L5-S1 posterior interbody cage placement 3. L4-5, L5-S1 posterior segmental instrumentation removal 4. L4-5, L5-S1 revision laminectomy with exploration of fusion 5. L3-4 laminectomy with facetecomies for decmpression purpose 5. L3-4, L4-5, L5-S1 posterior segmental instrumentation with pedicle screw placement 6. Ramsay of bone marrow from iliac crest through a separate incision 7. Utilization of microsurgical technique and operating microscope Same procedure as scheduled: Yes Indications: Patient has been having chronic back pain and worsening lumbar radiculopathy. Patient had prior instrumented fusion with interbody cages of facet screws with significant hardware loosening and pseudoarthrosis L4-5 L5-S1 level. Patient failed multiple conservative management with worsening pain weakness and numbness in her lower extremity. Patient has been having difficulty performing activity of daily living. After discussing risks benefits of treatment options, patient elected proceed with surgery. Surgeon: Lia Moses Cardiac Cath Technician: Katy Molina'Brien Click Yes if Unassisted: No Anesthesia Type: General Operative Notes Closure Type: primary Specimen(s): none sent Prosthetic devices, grafts, tissues, transplants, or devices: Globus revolve screws, Rise cages Applied: catheter Estimated Blood Loss (mL): 250 Blood products transfused: none Procedure in detail: Patient was seen in the preoperative area. Risks and benefits of the surgery was discussed with the patient. Informed consent was obtained from the patient and placed in the chart. Surgical site was marked. Patient was taken to the operative room. General anesthesia was administered. Prophylactic antibiotic was given to the patient less than 30 min before the incision was made. Patient was placed into a prone position on the Brenden table. Patient's back was then prepped and draped in the sterile fashion. Time- out was performed at this time. Using patient's previous scar incision was made over the L3-4 L4-5 L5-S1 interval on the right side. Fascia was incised in line with skin incision. Patient's previously placed hardware over the L4-5 L5-S1 level was identified by dissecting down to the level the hardware using a Bovie and a Holguin. The Facet screws were then removed using the screwdriver. The screws were found to be grossly loose with no purchase. The screws were removed both because there were loose and also they were in the way of pedicle screw placement. The Globus and MARS retractors was then placed into the wound and docked onto the L3-L4 and L5 lamina using C-arm guidance. Using microsurgical technique and operating microscope a laminectomy facetectomy was performed by removing the L3, L4 and L5 lamina and the L3-4 L4-5 L5-S1 facet. L3-4 L4-5 L5-S1 level were found to be grossly unstable after the decompression involving the laminectomy and facetectomy and requiring fusion procedure at all 3 levels. The disc space at L3-4 L4-5 L5-S1 level was identified next. And a total diskectomy was performed at L3-4 L4-5 L5-S1 level. The endplates were decorticated using a rasp and shaver. The total diskectomy and decortication was performed at L3-4 L4-5 L5-S1 level in order to to accomplish a L3-4 L4-5 L5-S1 fusion. The local bone from the laminectomy and facetectomy was saved for local bone grafting. After the total diskectomy and decortication was completed, Trifecta bone graft material was combined with local bone that was harvested earlier. At this time, a separate skin is incision was made over the iliac crest. A Jamshidi needle was inserted into the iliac crest through a separate skin incision. 5 cc of bone marrow aspiration was obtained through the separate skin incision using a Jamshidi needle from the iliac crest. The bone marrow aspiration was combined with local bone and the Trifecta bone grafting material. The bone grafting material was placed into the L3-4 L4-5 L5-S1 interbody space along with a expandable cage at L3-4 and L5-S1 level and was expanded to its maximum height using the torque limiting screwdriver.. The previously The placed L4-5 cage was impeding add additional cage to be placed cage. No additional interbody cage was placed at L4-5 level. Bone grafting material the L4-5 level fall complication posterior interbody fusion at the L4-5 level. At this time a mirror image incision was made on the left side. The fascia was incised in line with the skin incision. The fusion mass on the left side was exposed by performing a left-sided hemilaminectomy at L4-5 L5-S1 level. The hemilaminectomy was performed using the Kerrison rongeur to undercut the lamina as well removing additional epidural scar tissue for purpose of decompressing the epidural space. The fusion mass was explored and was found have visible motion indicating pseudoarthrosis at both L4-5 L5-S1. Globus MARS retractor was inserted and docked onto the L3-4 L4-5 L5-S1 posterolateral gutter. Using the power drill, posterior-lateral decortication was performed at L3-4 L4-5 L5-S1 level until bleeding cortical bone was identified. The remaining bone grafting material was placed into the L3-4 L4-5 L5-S1 posterior lateral gutter he order to accomplish posterolateral fusion at the L3-4 L4-5 L5-S1 level. Using the double C-arm technique, pedicle screws were placed into the L3-L4 L5 and S1 pedicles bilaterally. This was done by placing the Jamshidi needle into the pedicles, then placing the guidewires over the Jamshidi needle, and finally placing the cannulated screws over the guidewires bilaterally. After the pedicle screws were placed, 2 titanium rods was locked into the heads of the pedicle screws using locking caps and torque limiting screwdriver. Thready reducers were used to reduce the patient's spondylolisthesis. Appropriate reduction was accomplished and all the hardware plates were solid at the end the procedure. After all the hardware was placed, and confirmed with AP and lateral C-arm imaging, the wound was then irrigated with sterile normal saline and packed with Ray-Cayla gauze for 3 min to accomplish hemostasis. After the gauze was removed the deep fascia was closed with #1 Vicryl suture. The subcutaneous layer was closed with 2-0 Vicryl. The skin was closed with skin winter. Patient tolerated the procedure well. There were no complications. Complications: none Post-operative Condition: stable Disposition: PACU Plan for aftercare: Admit to inpatient hospital
[2020-04-04] MEDS: hydrOXYzine 50 MG/ML INJ 25 MG IM (13:52)
[2020-04-04] MEDS: HYDROMORPHONE 2 MG INJ IV ×4 (13:57→14:16)
[2020-04-04] MEDS: SODIUM CHLORIDE 0.9% 1,000 ML 100 ML IV (16:01)
[2020-04-04] MEDS: ONDANSETRON 4 MG/2 ML INJ IV (16:01)
[2020-04-04] MEDS: HYDROMORPHONE 0.5 MG INJ IV (18:40)
[2020-04-04] MEDS: OXYCODONE IR 10 MG TABLET PO (21:16)
[2020-04-04] MEDS: VERAPAMIL 120 MG TABLET 240 MG PO (21:17)
[2020-04-04] MEDS: ursodioL 300 MG CAPSULE PO (21:17)
[2020-04-04] MEDS: SIMVASTATIN 20 MG TABLET 10 MG PO (21:18)
[2020-04-05] MEDS: OXYCODONE IR 10 MG TABLET PO ×5 (00:09→12:43)
[2020-04-05] MEDS: CLINDAMYCIN 900 MG/50 ML PIGGYBACK 50 MG IV (02:23)
[2020-04-05 03:34] VITALS: BP 111/54; PULSE 75; RESP 15; TEMP 37.1; O2SAT 96
[2020-04-05 05:48] LABS: Hematocrit 36.1 % (36-46); Hemoglobin 11.7 g/dL (12.0-16.0)
--- NOTE | 2020-04-05 06:59 | PC.NURSE ---
The patient successfully voided 200cc post indwelling catheter removal. She is currently sitting up in the reclining chair. She ambulated to the restroom with a steady gait, using the front wheel walker; stand-by assist.
[2020-04-05] MEDS: LORATADINE 10 MG TABLET PO (08:34)
[2020-04-05] MEDS: PANTOPRAZOLE 20 MG TABLET PO (08:34)
[2020-04-05] MEDS: GABAPENTIN 600 MG TABLET PO (08:34)
[2020-04-05] MEDS: ursodioL 300 MG CAPSULE PO (08:35)
[2020-04-05] MEDS: VERAPAMIL 120 MG TABLET 240 MG PO (08:36)
[2020-04-05] MEDS: hydrOXYzine pamoate 25 MG CAPSULE PO (09:17)
[2020-04-05] MEDS: ACETAMINOPHEN 325 MG TABLET 650 MG PO (09:17)
--- NOTE | 2020-04-05 10:18 | PT.IIE ---
Current Diagnoses Spondylolisthesis, lumbar region (04/04/20) Spinal stenosis, lumbar region without neurogenic claudication (04/04/20) Unspecified fracture of unspecified lumbar vertebra, subsequent encounter for fracture with nonunion (04/04/20) Surgery Performed Operation Date: 04/04/20 07:45 Actual Procedures p L3-4,L4-5,L5-S1 TLIF, L4-S1 HWR,L3-S1 PSF with instrumentation - Lia Moses MD Surgical History (Last Reviewed 04/05/20 @ 11:52 by Alex Watt PA-C) History of back surgery (2013) History of carpal tunnel repair (1997) History of carpal tunnel surgery of left wrist History of spinal surgery (2014) History of tonsillectomy (1984) Hx of bariatric surgery (01/24/20) Hx of bilateral cataract extraction Status post delivery (1987) Status post epidural steroid injection (2011) Status post hernia repair (2013) Status post knee surgery (2011) Medical History (Last Reviewed 04/05/20 @ 11:52 by Alex Watt PA-C) Anxiety (2009) Arthritis Carpal tunnel syndrome (~1997) Chicken pox (~1964) Chronic back pain (2003) Elbow fracture (1999) Hayfever (2001) Hypertension IBS (irritable bowel syndrome) Kidney stones (2000) Lumbar stenosis Migraines (1972) Shoulder pain Sleep apnea Physical Therapy Inpatient Evaluation/Re-Eval M1 PT/OT-IP Prior Functional Status Start: 04/05/20 12:38 Freq: NEEDED Status: Active Protocol: Document 04/05/20 10:18 AB (Rec: 04/05/20 12:47 [email or web address] Medical Review Prior Functional Status Medical History Reviewed Yes Communication able to make needs known Mobility and Gait pt stated that she is independent with all mobilities and ambulation wtihout AD Social History Household Members spouse Living Arrangements House Number of Floors (Floors) One Floor Number of Stairs To Enter/Railing? 1 step to enter Home Environment High Toilet,Tub/Shower Doors Home Equipment Front Wheel Walker,Shower Seat without Backrest,Hand Held Shower M2 PT-IP Current Condition Start: 04/05/20 12:38 Freq: NEEDED Status: Active Protocol: Document 04/05/20 10:18 AB (Rec: 04/05/20 12:47 AB [email or web address]) Physical Therapy Current Condition Current Condition Evaluation Date 04/05/20 Treatment Diagnosis s/p L3-S1 posterior fusion/ lami; difficulty in walking Onset Date 04/04/20 Precautions Lumbar Precautions Log Roll,No Twisting,Limit Bending,Lifting Restriction of 10 lbs,Gait Belt above Incisional Area M3 PT-IP Subjective Start: 04/05/20 12:38 Freq: NEEDED Status: Active Protocol: Document 04/05/20 10:18 AB (Rec: 04/05/20 12:47 AB [email or web address]) Subjective Physical Therapy Visit Type Type Initial Evaluation Visit Start Time 10:18 Visit Stop Time 10:39 Total Visit Minutes 21 Number of EDUCATIONAL RECRUITER Visits 0 Physical Therapy Visit Comments Patient Comments pt is agreeable to do PT Therapy Pain Assessment Pain When Pain Assessed At Rest Pain Present Pain Present Pain Reported Location Back Intensity 7 Scale Used Numeric (0 - 10) Pain Management Techniques Modification of Treatment,Re- positioning,Timing of Activity with Medications M4 PT-IP Mobility and Gait Start: 04/05/20 12:38 Freq: NEEDED Status: Active Protocol: Document 04/05/20 10:18 AB (Rec: 04/05/20 12:47 AB [id number]) PT-Bed Mobility Assessment Rolling Type of Rolling Log Rolling Level of Assist Standby Assistance Supine to Sit Supine to Sit Standby Assistance Sit to Supine Sit to Supine Standby Assistance Scooting Scooting to Edge of Bed Standby Assistance Scooting Up and Down in Bed Standby Assistance PT-Transfer Assessment Sit to and From Stand Sit to and from Stand Standby Assistance Equipment Transfer Assistive Device Gait Belt,Front Wheeled Walker Orthotic/Prosthetic Devices or Brace: No Transfers Transfer Destination Chair Transfer Technique ambulated using FWW Transfer Ability Level of Assist Standby Assistance Comments Mobility Comments spouse in room with pt. pt and spouse stated that this is her 3rd back surgery and is confident on how to do things at home. reviewed back precautions and log roll bed mobility. pt completed bed mobility SBA. ambulated in room using FWW SBA. agreed to do stairs. ambulated in the hallway using FWW ~ 200 ft SBA and completed up/down platform step using FWW CGA. ambulated back to her room SBA and completed sit to supine SBA. positioned in bed. call light and table placed within reach. informed nurse that pt is cleared to go home and wants to go home today. Gait Assessment Gait Gait Assistance Required: Standby Assistance Distance (Feet) 200 Able to Maintain Weight Bearing Status Yes During Gait Assistive Devices Assistive Device Gait Belt,Front Wheeled Walker Orthotic/Prosthetic Devices or Brace: No Gait Deviations General Gait Pattern Antalgic Factors Limiting Gait Function Factors Limiting Gait Function Decreased Strength,Limited Range of Motion,Pain Stair Climbing Assessment Evaluation Level of Assist On Stairs Contact Guard Assistance Devices Stair Climbing Assistive Devices Front Wheel Walker Technique/Endurance Stair Climbing Direction Ascend and Descend Stair Climbing Technique Step to Step Number of Steps Climbed 1 Query Text: Stair Climbing Set # Repetitions (reps) 1 PT-Balance Assessment Sitting Balance and Reactions Static Sitting Balance Ability Good Dynamic Sitting Balance Ability Good Standing Balance and Reactions Static Standing Balance Ability Fair Dynamic Standing Balance Ability Fair Device Used FWW M5 PT-IP Objective Assessments Start: 04/05/20 12:38 Freq: NEEDED Status: Active Protocol: Document 04/05/20 10:18 AB (Rec: 04/05/20 12:47 AB [email or web address]) Orientation Orientation/Cognition Level of Alertness Alert Orientation Name,Age,Birthday,Month,Date, Year,Day of Week,Place, Situation Safety Awareness Decreased Safety Awareness Comments pt can be impulsive Gross Range of Motion Lower Extremity ROM Assessment Within Functional Limits Strength Lower Extremity Strength Hip 4-/5 Knee 4-/5 Muscle Tone Muscle Tone WNL Yes M6 PT-IP Treatment Start: 04/05/20 12:38 Freq: NEEDED Status: Active Protocol: Document 04/05/20 10:18 AB (Rec: 04/05/20 12:47 AB [email or web address]) Physical Therapy Treatment Education Education Provided Precautions,Weight Bearing Status,Post-Op Packet,Safety M7 PT-IP Assessment and Plan Start: 04/05/20 12:38 Freq: NEEDED Status: Active Protocol: Document 04/05/20 10:18 AB (Rec: 04/05/20 12:47 AB [email or web address]) PT Summary Assessment and Plan Potential Rehabilitation Potential Good Status of Condition at Evaluation Stable Summary Impairments Pain,ROM,Strength,Balance, Coordination,Sensation,Tone, Cognition,Bed Mobility, Transfers,Gait,Activity Tolerance Assessment Summary pt is doing well with mobility and plans to go home with spouse to assist her. pt requiring SBA with mobility and cues to slow down as pt can be impulsive. pt may go home when medically stable. Goals Bed Mobility Goal Independent Transfer Goal Independent,Front Wheeled Walker Gait Goal Independent,Front Wheel Walker Gait Distance 250 Other Goals ambulation without AD 150 ft SBA up/down 1 steps using FWW mod I Days to Meet Goals 3 Frequency of Treatment Frequency Of Treatment Twice a Day Treatment Plan Physical Therapy Treatment Plan Bed Mobility Training,Transfer Training,Gait Training, Therapeutic Exercise,Balance Retraining,Post Op Education, Discharge Planning,Hot or Cold Pack,Neuromuscular Re-ed, Coordination Retraining,Manual Therapy Recommendations To Nursing Amount of Assist Needed Standby Assistance Discharge Recommendations PT Discharge Recommendations Home with Assistance Transportation Needs at Discharge Private Vehicle
--- NOTE | 2020-04-05 11:16 | OT.IP.EVAL ---
Current Diagnoses Spondylolisthesis, lumbar region (04/04/20) Spinal stenosis, lumbar region without neurogenic claudication (04/04/20) Unspecified fracture of unspecified lumbar vertebra, subsequent encounter for fracture with nonunion (04/04/20) Surgery Performed Operation Date: 04/04/20 07:45 Actual Procedures p L3-4,L4-5,L5-S1 TLIF, L4-S1 HWR,L3-S1 PSF with instrumentation - Lia Moses MD Past Medical History (Last Reviewed 04/05/20 @ 11:52 by Alex Watt PA-C) Anxiety (2009) Arthritis Carpal tunnel syndrome (~1997) Chicken pox (~1964) Chronic back pain (2003) Elbow fracture (1999) Hayfever (2001) Hypertension IBS (irritable bowel syndrome) Kidney stones (2000) Lumbar stenosis Migraines (1972) Shoulder pain Sleep apnea Surgical History (Last Reviewed 04/05/20 @ 11:52 by Alex Watt PA-C) History of back surgery (2013) History of carpal tunnel repair (1997) History of carpal tunnel surgery of left wrist History of spinal surgery (2014) History of tonsillectomy (1984) Hx of bariatric surgery (01/24/20) Hx of bilateral cataract extraction Status post delivery (1987) Status post epidural steroid injection (2011) Status post hernia repair (2013) Status post knee surgery (2011) Occupational Therapy Inpatient Evaluation/Re-Eval M1 PT/OT-IP Prior Functional Status Start: 04/05/20 12:58 Freq: NEEDED Status: Active Protocol: Document 04/05/20 10:47 [facility] (Rec: 04/05/20 13:30 [facility] [id number]) Medical Review Prior Functional Status Medical History Reviewed Yes Communication able to make needs known Mobility and Gait pt stated that she is independent with all mobilities and ambulation without AD Activities of Daily Living and IADL's Completely independent with all ADL, IADL, medications and finances. Social History Household Members spouse Living Arrangements House Number of Floors (Floors) One Floor Number of Stairs To Enter/Railing? 1 step to enter Home Environment High Toilet,Tub/Shower Doors Home Equipment Front Wheel Walker,Shower Seat without Backrest,Hand Held Shower M2 OT-IP Current Condition Start: 04/05/20 12:58 Freq: Status: Active Protocol: Document 04/05/20 10:47 [facility] (Rec: 04/05/20 13:30 [facility] [id number]) Occupational Therapy Current Condition Current Condition Evaluation Date 04/05/20 Treatment Diagnosis S/P L3-S1 TLIF, L4-S1 HWR, L3- S1 PSF Diagnosis Onset Date 04/04/20 Post Operative Precautions Lumbar Precautions Log Roll,No Twisting,Limit Bending,Lifting Restriction of 10 lbs,Gait Belt above Incisional Area M3 OT- IP Subjective and Pain Start: 04/05/20 12:58 Freq: Status: Active Protocol: Document 04/05/20 10:47 [facility] (Rec: 04/05/20 13:30 [facility] [id number]) OT- Subjective Occupational Therapy Visit Type Type Initial Evaluation Visit Start Time 10:47 Visit Stop Time 11:16 Total Visit Minutes 29 Occupational Therapy Visit Comments Patient Comments Pt agreed to work with OT for eval and wanting to get dressed. Patient/Caregiver Goals TO go home. OT Pain Assessment Pain When Pain Assessed At Rest Pain Present Pain Present Pain Reported Location Back Intensity 7 Scale Used Numeric (0 - 10) M4 OT- IP ADL's Start: 04/05/20 12:58 Freq: Status: Active Protocol: Document 04/05/20 10:47 [facility] (Rec: 04/05/20 13:30 [facility] [id number]) OT DPB-Ttwm-Nwcelmo General Evaluation Self-Feeding Ability Independent OT ADL-Grooming General Evaluation Grooming Ability Standby Assistance Comments OT Grooming Comments set-up OT ADL-Oral Care General Eval Oral Care Ability Independent Comments Oral Care Comments Initial VC to spit into a cup or hinge at her hips to spit into the sink during grooming needs. OT ADL-Dressing General Eval Upper Body Dressing Ability Independent Lower Body Dressing Ability Moderate Assistance Comments OT Dressing Comments Assist to tie her shoes and put on her socks and not able to cross her left foot over to reach. Pt states her to assist or that she will get a sock aid. OT ADL-Toileting Comments OT Toileting Comments Pt states wipes from the front to back and agreed would look into getting a toilet paper aid in addition to wipes to assist and best follow her back precautions. OT ADL-Bathing Comments OT Bathing Comments Pt states to shower at home. M5 OT- IP IADL's Start: 04/05/20 12:58 Freq: Status: Active Protocol: Document 04/05/20 10:47 [facility] (Rec: 04/05/20 13:30 [facility] [id number]) OT-Instrumental Activities of Daily Living Home Safety Awareness Home Safety Comments Pt a little groggy, impulsive and forgetful and feels due to her medications and aware to has her assist and provide supervision at needed. M6 OT- IP Functional Cognition Start: 04/05/20 12:58 Freq: Status: Active Protocol: Document 04/05/20 10:47 [facility] (Rec: 04/05/20 13:30 [facility] [id number]) Cognitive Factors Limiting Selfcare Function Cognitive Ability Level of Alertness Alert Patient Orientation Name,Age,Birthday,Month,Date, Year,Day of Week,Place, Situation Attention Span Ability Capable of Focused Attention, Capable of Sustained Attention Ability to Follow Commands Able to Follow One Step Commands Memory Description No Deficits Noted Safety Awareness Decreased Recall of Precautions,Decreased Ability to Apply Precautions, Underestimates Need for Assistance Cognitive Comments Cognitive Assessment Comments Pt needing reminders for her back precautions and how to incorporate during her Adl needs. Pt also tends to be a little impulsive and vc to slow down. OT- Vision and Hearing OT- Hearing Assessment OT- Hearing Assessment WFL OT- Vision Assessment Visual Acuity Glasses For Reading M7 OT- IP Mobility and Balance Start: 04/05/20 12:58 Freq: Status: Active Protocol: Document 04/05/20 10:47 [facility] (Rec: 04/05/20 13:30 [facility] [id number]) OT- Bed Mobility Assessment Rolling Type of Rolling Roll to Left Level of Assistance Standby Assistance Supine to Sit Supine to Sit Assist Standby Assistance OT-Transfer Assessment Sit to and From Stand Sit to and from Stand Standby Assistance Transfers Transfer Ability Standby Assistance Technique Transfer Destination Bed,Chair,Toilet Transfer Technique Stand Step Pivot Devices Transfer Assistive Devices Gait Belt,Front Wheeled Walker Comments Mobility Comments SBA with bed mobility and use of FWW. Pt needing cues to keep the FWW front of her at all times as initially had it turned sideways at the sink. OT- Gait Assessment Comments Gait Ability Comments SBA with FWW, VC to not to twist and to move her feet and body at the same time to turn . OT- Balance Assessment Sitting Balance and Reactions Static Sitting Balance Ability Normal Dynamic Sitting Balance Ability Good Standing Balance and Reactions Static Standing Balance Ability Fair M8 OT- IP Objective Assessments Start: 04/05/20 12:58 Freq: Status: Active Protocol: Document 04/05/20 10:47 [facility] (Rec: 04/05/20 13:30 [facility] [id number]) OT Gross Range of Motion Upper Extremity Range of Motion Assessment Within Functional Limits OT-Muscle Tone Assessment Muscle Tone WNL Yes M9 OT- IP Assessment and Plan Start: 04/05/20 12:58 Freq: Status: Active Protocol: Document 04/05/20 10:47 [facility] (Rec: 04/05/20 13:30 [facility] [id number]) OT Summary Assessment and Plan Potential Rehabilitation Potential Good Analytic Complexity at Evaluation Low Summary OT Impairments Pain,Functional Cognition, Functional Mobility,Dressing, Toileting,Bathing Progress Towards Goals Progressing Toward Goals Assessment Summary Pt low complexity and main barrier are pain, decreased safety awareness of FWW and back precautions, and a bit groggy form her pain medications and pt feel that she is not thinking as well. Pt to have supportive to assist at home. Goals Dressing Goal Independent Toileting Goal Independent Bathing Goal Independent Toilet Transfer Goal Independent Shower Transfer Goal Independent Patient/Caregiver Education Goal Demonstrate Post-Op Precautions,Caregiver Independent Assisting Patient Days to Meet Goals 2 Frequency of Treatment Frequency Of Treatment Once a Day Treatment Plan OT Treatment Plan ADL Training,Functional Cognition Training,Functional Mobility,Patient/Family Education,Discharge Planning Other Treatment Recommendations and Next Shower if still here. Treatment Focus Discharge Recommendations OT Discharge Recommendations Home with Assistance Home Equipment Needs Toilet paper aid, sock aid Transportation Needs at Discharge Private Vehicle
--- NOTE | 2020-04-05 11:47 | CM.IDA ---
Initial DCP Assessment Note Pt is a 59 yo female, resident of [place], now POD#1 from spinal surgery w/ Dr Moses PCP: Presley Valdovinos Payer: [employer] out of [facility] Reviewed chart, pt discussed in multidisciplinary rounds this morning. Therapy has cleared pt for return home w/family to assist and pt has planned for home, met w/patient to review DCP, patient feels confident about returning home w/spouse to assist. Patient has had two prior back surgeries and feels prepared for recovery. No needs expected from DC planning team although will remain available in case this changes today. SHIRLENE Brito
--- NOTE | 2020-04-05 11:50 | P.DS_ITS ---
History of Present Illness History of Present Illness Date Patient Seen: 04/05/20 Time Patient Seen: 11:50 Chief complaint: INPT Narrative: Patient's pain is mild. Denies fever or chills. No nausea or vomiting. Patient does have assistance at home. Discharge Providers Provider Date of admission: 04/04/20 06:39 Discharge Date: 04/05/20 Primary care physician: Presley Valdovinos MD Consults: 04/04/20 07:07 Consult to Respiratory Therapy Evaluate & Treat Comment: Physician Instructions: Evaluate and treat 04/04/20 15:26 Consult to Occupational Therapy Evaluate & Treat Comment: Physician Instructions: Evaluate and treat Consult to Physical Therapy Evaluate & Treat Comment: Physician Instructions: Evaluate and Treat Discharge provider: Alex Watt PA-C Summary Hospital Course Discharge Diagnosis: 1. L3-4, L4-5, L5-S1 spinal stenosis 2. L4-5, L5-S1 spondylolisthesis 3. Hx of L4-5, L5-S1 instrumented fusion with pseudoarthrosis 4. L3-4, L4-5, L5-S1 spondylosis with radiculopathy 5. Lumbar hardware loosening Hospital Course: 1. L3-4, L4-5, L5-S1 posterolateral and posterior interbody fusion 2. L3-4, L5-S1 posterior interbody cage placement 3. L4-5, L5-S1 posterior segmental instrumentation removal 4. L4-5, L5-S1 revision laminectomy with exploration of fusion 5. L3-4 laminectomy with facetecomies for decmpression purpose 5. L3-4, L4-5, L5-S1 posterior segmental instrumentation with pedicle screw placement 6. [place] of bone marrow from iliac crest through a separate incision 7. Utilization of microsurgical technique and operating microscope Same procedure as scheduled: Yes Indications: Patient has been having chronic back pain and worsening lumbar radiculopathy. Patient had prior instrumented fusion with interbody cages of facet screws with significant hardware loosening and pseudoarthrosis L4-5 L5-S1 level. Patient failed multiple conservative management with worsening pain weakness and numbness in her lower extremity. Patient has been having difficulty performing activity of daily living. After discussing risks benefits of treatment options, patient elected proceed with surgery. Surgeon: Lia Moses Customer Care Assistant: Katy Molina'Brien Click Yes if Unassisted: No Anesthesia Type: General Operative Notes Closure Type: primary Specimen(s): none sent Prosthetic devices, grafts, tissues, transplants, or devices: Globus revolve screws, Rise cages Applied: catheter Estimated Blood Loss (mL): 250 Blood products transfused: none Status at Discharge Cognitive/behavioral status at discharge: at baseline, oriented Functional status at discharge: uses cane/walker Overall status at discharge: patient is progressing back to baseline Time Spent with Patient Time spent: Less than 30 minutes Exam Vital Signs (past 8 hours): Oxygen Delivery Method Room Air Oxygen Flow Rate 1 Narrative Exam Narrative: Pleasant 59-year-old female sitting comfortably in bedside chair in no apparent distress. Both legs are warm and dry. Motor functions intact distally. Sensation grossly intact to light touch bilateral lower extremities. Dressing is clean and dry. Objective Labs Result Diagrams: 04/05/20 05:05 Labs: Laboratory Results - last 24 hr 04/05/20 05:05 Hgb 11.7 L Hct 36.1 PFSH Medical History Anxiety (2009) Arthritis Carpal tunnel syndrome (~1997) Chicken pox (~1964) Chronic back pain (2003) Elbow fracture (1999) Hayfever (2001) Hypertension IBS (irritable bowel syndrome) Kidney stones (2000) Lumbar stenosis Migraines (1972) Shoulder pain Sleep apnea Surgical History History of back surgery (2013) History of carpal tunnel repair (1997) History of carpal tunnel surgery of left wrist History of spinal surgery (2014) History of tonsillectomy (1984) Hx of bariatric surgery (01/24/20) Hx of bilateral cataract extraction Status post delivery (1987) Status post epidural steroid injection (2011) Status post hernia repair (2013) Status post knee surgery (2011) Family History Father Diabetes mellitus Heart disease Hypertension High cholesterol Mother Osteoporosis Social History household members: spouse Smoking Status: Never smoker alcohol intake: current substance use type: does not use Discharge Assessment & Plan Assessment and Plan Assessment: Patient progressing as expected. Plan of Treatment: Discharge home in stable condition. Limit bending, twisting, lifting. Follow- up in 2 weeks. Discharge Plan Discharge Plan Patient Disposition: Home Discharge orders & Medications Prescriptions: New acetaminophen 325 mg Tablet 650 mg PO Q6HR PRN (Reason: Pain, Mild (1-3)) Qty: 60 RF: 0 docusate sodium [DOK] 100 mg Capsule 100 mg PO BID Qty: 20 RF: 0 hydroxyzine pamoate 25 mg Capsule 25 mg PO Q4HR PRN (Reason: Nausea And Vomiting) Qty: 40 RF: 0 oxycodone 10 mg Tablet 10 mg PO Q3HR PRN (Reason: Pain, Severe (7-10)) Qty: 60 RF: 0 Continued omeprazole 20 mg capsule,delayed release(DR/EC) 20 mg PO DAILY Qty: 30 RF: 0 simvastatin 10 mg tablet 10 mg PO HS Qty: 90 RF: 3 gabapentin 600 mg tablet 600 mg PO TID Qty: 270 RF: 1 verapamil 120 mg tablet 240 mg PO BID Qty: 360 RF: 3 sumatriptan succinate 50 mg Tablet 50 mg PO Q2-4H PRN (Reason: Migraine Headache) RF: 0 ursodiol 300 mg Capsule 300 mg PO BID RF: 0 cetirizine [Aller-Cayla] 10 mg Tablet 10 mg PO DAILY RF: 0 Discontinued hydrocodone-acetaminophen [[place]] 5-325 mg tablet 1 tab PO TID PRN (Reason: pain) Qty: 90 RF: 0 Follow up/Referrals: Presley Valdovinos MD [Primary Care Provider] - Lia Moses MD [Physician] - (2 weeks) Diet/Activity/Treatments Activity: Limit bending, lifting, twisting Cold/Heat Therapy: ice as needed Skin/Wound/Dressing Care Report to your healthcare provider any signs of infection, such as:: chills, fever, increased pain, unusual drainage and unusual redness Dressing: keep clean and dry Visit Report/Discharge Packet Instructions: DI for Constipation, How to Prevent Falls, DI for Prescription Opioid Use, DI for Transforaminal Lumbar Interbody Fusion Discharge Data Primary Care Provider: Presley Valdovinos Quality VTE Deep Vein Thrombosis/Pulmonary Embolism Present on Admission: No
--- NOTE | 2020-04-05 14:11 | PC.NURSE ---
Discharge: Feels ready to d/c home. Has had joel removed and voided. Able to tolerate diet. Po pain meds have been effective for pain. Seen by GEETHA Watt and given instructions. Seen by PT/OT and given their instructions. Dressing changed to low back, bilat incisions are stapled and clean and dry. Coversite applied. Pt understands her lami precautions. Reviewed d/c packet. Rx has been esent and pt shown this on her med rec. Questions answered. Pt d/c home via auto w/spouse. Had no concerns when she left.
== END 2020-04-05 12:00 | disposition home or self-care (01) | DRG 454 ==
PROVIDERS: Admitting Provider Orthopaedic Surgery Orthopaedic Surgery of the Spine; PCP Student in an Organized Health Care Education/Training Program; Referring Provider Student in an Organized Health Care Education/Training Program; Visit Provider Orthopaedic Surgery Orthopaedic Surgery of the Spine
PROC: 0SG00AJ Fusion of Lumbar Vertebral Joint with Interbody Fusion Device, Posterior Approach, Anterior Column, Open Approach (ICD-10-PCS; principal; 2020-04-04 07:45)
DX: M48.062 Spinal stenosis, lumbar region with neurogenic claudication (principal); M96.0 Pseudarthrosis after fusion or arthrodesis; T84.038A Mechanical loosening of other internal prosthetic joint, initial encounter; Z68.41 Body mass index [BMI] 40.0-44.9, adult; M43.16 Spondylolisthesis, lumbar region; E66.01 Morbid (severe) obesity due to excess calories; I10 Essential (primary) hypertension; E78.5 Hyperlipidemia, unspecified; M48.07 Spinal stenosis, lumbosacral region; M43.17 Spondylolisthesis, lumbosacral region; Z20.828 Contact with and (suspected) exposure to other viral communicable diseases
CPT/HCPCS: 36415; 72100; 76000; 82962; 85014; 85018; 87635; 97161; 97165; 97535; C1776; C9290; J0330; J1100; J1170; J2250; J2405; J2704; J3010; J3410

== ENCOUNTER → 2020-06-22 11:22 | Outpatient (CLI) | payer BC, MEDICARE, SELFPAY ==
[2020-04-04 07:02] VITALS: BMI 40.8
[2020-06-22 12:51] LABS: Cholesterol 196 mg/dL (140-199); HDL Cholesterol 50 mg/dL (40-60); LDL Cholesterol Calculated 111 mg/dL (<100); Triglycerides 176 mg/dL (35-150)
[2020-06-22 13:00] LABS: Hemoglobin A1C% w Est Avg Glu 5.5 % (4.0-6.0)
[2020-06-22 16:41] LABS: Creatinine Urine Random 195.3 mg/dL
[2020-06-22 16:46] LABS: Microalbumi Creatinin Ratio Ur 17.4 ug/mg CR (<30); Microalbumin Urine Random 3.4 mg/dL (0-1.6)
== END ==
PROVIDERS: PCP Student in an Organized Health Care Education/Training Program; Referring Provider Student in an Organized Health Care Education/Training Program; Visit Provider Student in an Organized Health Care Education/Training Program
DX: E78.5 Hyperlipidemia, unspecified (principal); I10 Essential (primary) hypertension
CPT/HCPCS: 36415; 80061; 82043; 82570; 83036

== ENCOUNTER → 2020-09-10 10:05 | Outpatient (CLI) | payer BC, MEDICARE, SELFPAY ==
[2020-04-04 07:02] VITALS: BMI 40.8
[2020-09-10 11:07] LABS: Hematocrit 42.8 % (36-46); Hemoglobin 13.9 g/dL (12.0-16.0); Mean Corpuscular HGB Conc 32.4 % (30-36); Mean Corpuscular Hemoglobin 26.2 PG (26-34); Mean Corpuscular Volume 80.7 fL (80-100); Platelet Count 184 X10^3/uL (150-400); Red Cell Distribution Width 15.9 % (11.6-14.8); White Blood Cell Count 4.9 X10^3/uL (4.5-11.0)
[2020-09-10 11:11] LABS: Hemoglobin A1C% w Est Avg Glu 5.6 % (4.0-6.0)
[2020-09-10 11:42] LABS: HEMOLYSIS < 15 (0-50)
[2020-09-10 11:47] LABS: Neutrophils Absolute Manual 2107 /uL (3000-5900); RBC Morphology Normal Morphology; Total Cells Counted 100
[2020-09-10 11:48] LABS: Alanine Aminotransferase 23 IU/L (<35); Albumin 4.1 g/dL (3.5-5.0); Albumin Globulin Ratio 1.5 (1.0-2.8); Alkaline Phosphatase 83 U/L (38-126); Aspartate Aminotransferase 28 IU/L (14-36); BUN Creatinine Ratio 23.7 (6-22); Bilirubin Total 0.3 mg/dL (0.2-1.3); Blood Urea Nitrogen 18 mg/dL (7-17); Carbon Dioxide 31 mmol/L (22-32); Chloride 102 mmol/L (98-107); Estimated Glomerular Filt Rate > 60.0 mL/min (>60); Globulin 2.8 g/dL (1.7-4.1); Glucose 107 mg/dL (80-110); Magnesium 1.8 mg/dL (1.6-2.3); Potassium 4.6 mmol/L (3.4-5.1); Sodium 138 mmol/L (137-145); Total Protein 6.9 g/dL (6.3-8.2)
[2020-09-10 12:05] LABS: Vitamin D 25 Hydroxy (D3) 33.9 ng/mL (30.0-100.0)
[2020-09-10 12:25] LABS: Ferritin 13 ng/mL (11-264)
[2020-09-10 12:56] LABS: Folate > 20.0 ng/mL (2.76-20.0); Vitamin B12 894 pg/mL (239-931)
[2020-09-11 17:10] LABS: Calcium 10.3 mg/dL (8.7-10.3); Parathyroid Hormone, Intact 36 pg/mL (15-65)
[2020-09-13 10:41] LABS: Vitamin A 55.9 ug/dL (22.0-69.5)
[2020-09-13 11:52] LABS: Vitamin B1 247.9 nmol/L (66.5-200.0)
== END ==
PROVIDERS: PCP Student in an Organized Health Care Education/Training Program; Referring Provider Physician Assistant Medical; Visit Provider Physician Assistant Medical
DX: K91.2 Postsurgical malabsorption, not elsewhere classified (principal); E66.9 Obesity, unspecified
CPT/HCPCS: 36415; 80053; 82306; 82310; 82607; 82728; 82746; 83036; 83735; 83970; 84425; 84590; 85025

== ENCOUNTER → 2020-11-08 10:20 | Outpatient (CLI) | payer BC, MEDICARE, SELFPAY ==
[2020-04-04 07:02] VITALS: BMI 40.8
[2020-11-08 11:00] LABS: Add Manual Diff / Slide Review NO; Basophils Absolute Auto 0 /uL (0-100); Basophils Percent Auto 0.9 % (0-2); Eosinophils Absolute Auto 100 /uL (0-450); Eosinophils Percent Auto 2.9 % (2-4); Hematocrit 44.6 % (36-46); Hemoglobin 14.4 g/dL (12.0-16.0); Lymphocytes Absolute Auto 1700 /uL (1100-4500); Lymphocytes Percent Auto 33.8 % (25-40); Mean Corpuscular HGB Conc 32.4 % (30-36); Mean Corpuscular Volume 83.3 fL (80-100); Monocytes Absolute Auto 300 /uL (0-900); Monocytes Percent Auto 5.2 % (3-14); Neutrophils Absolute Auto 2900 /uL (1500-7000); Neutrophils Percent Auto 57.2 % (50-75); Platelet Count 191 X10^3/uL (150-400); Red Blood Cell Count 5.35 X10^6/uL (4.0-5.2); Red Cell Distribution Width 16.1 % (11.6-14.8); White Blood Cell Count 5.1 X10^3/uL (4.5-11.0)
[2020-11-08 11:11] LABS: Alanine Aminotransferase 24 IU/L (<35); Albumin 4.3 g/dL (3.5-5.0); Albumin Globulin Ratio 1.5 (1.0-2.8); Alkaline Phosphatase 77 U/L (38-126); Aspartate Aminotransferase 28 IU/L (14-36); Bilirubin Total 0.4 mg/dL (0.2-1.3); Blood Urea Nitrogen 16 mg/dL (7-17); Calcium 9.7 mg/dL (8.4-10.2); Carbon Dioxide 28 mmol/L (22-32); Chloride 104 mmol/L (98-107); Estimated Glomerular Filt Rate > 60.0 mL/min (>60); Globulin 2.9 g/dL (1.7-4.1); Glucose 114 mg/dL (80-110); HEMOLYSIS < 15 (0-50); Magnesium 1.9 mg/dL (1.6-2.3); Potassium 4.4 mmol/L (3.4-5.1); Sodium 139 mmol/L (137-145); Total Protein 7.2 g/dL (6.3-8.2)
[2020-11-08 11:21] LABS: Hemoglobin A1C% w Est Avg Glu 5.4 % (4.0-6.0)
[2020-11-08 11:46] LABS: Ferritin 19 ng/mL (11-264)
[2020-11-08 12:16] LABS: Folate > 20.0 ng/mL (2.76-20.0); Vitamin B12 898 pg/mL (239-931)
[2020-11-09 09:55] LABS: Parathyroid Hormone Int 30 pg/mL (15-65)
[2020-11-10 14:39] LABS: Vitamin A 67.6 ug/dL (22.0-69.5)
== END ==
PROVIDERS: PCP Student in an Organized Health Care Education/Training Program; Referring Provider Physician Assistant Medical; Visit Provider Physician Assistant Medical
DX: Z98.84 Bariatric surgery status (principal); K90.9 Intestinal malabsorption, unspecified
CPT/HCPCS: 36415; 80053; 82306; 82607; 82728; 82746; 83036; 83735; 83970; 84425; 84590; 85025

== ENCOUNTER → 2021-03-29 13:11 | Outpatient (CLI) | payer BC, MEDICARE, SELFPAY ==
[2020-04-04 07:02] VITALS: BMI 40.8
[2021-03-29 15:17] LABS: Ferritin 22 ng/mL (11-264)
== END ==
PROVIDERS: PCP Student in an Organized Health Care Education/Training Program; Referring Provider Surgery; Visit Provider Surgery
DX: K95.89 Other complications of other bariatric procedure (principal)
CPT/HCPCS: 36415; 82728

== ENCOUNTER → 2021-04-05 11:06 | Outpatient (CLI) | payer BC, MEDICARE, SELFPAY ==
[2020-04-04 07:02] VITALS: BMI 40.8
--- NOTE | 2021-04-05 | DI.MG.S_ITS ---
BILATERAL DIGITAL SCREENING MAMMOGRAM 3D/2D WITH CAD: 04/05/2021 CLINICAL: Routine screening. Comparison is made to exams dated: 10/13/2019 mammogram, 05/03/2018 mammogram, 04/21/2018 mammogram, and 04/03/2018 mammogram - [facility]. There are scattered fibroglandular elements in both breasts. Current study was also evaluated with a Computer Aided Detection (CAD) system. There is a benign focal asymmetry in the right breast. There also are benign calcifications in the right breast. Additionally, there is a biopsy clip in the right breast. No significant masses, calcifications, or other findings are seen in either breast. There has been no significant interval change. IMPRESSION: BENIGN There is no mammographic evidence of malignancy. A 1 year screening mammogram is recommended. This exam was interpreted at Station ID: [id number]. NOTE: For mammograms, a report in lay terms will be sent to the patient. Approximately 15% of breast malignancies will not be visualized mammographically. In the management of a palpable breast mass, a negative mammogram must not discourage biopsy of a clinically suspicious lesion. Electronically Signed By: Alonzo pa/sandro:04/05/2021 15:06:47 letter sent: Normal Exam ACR BI-RADS Category 2: Benign Finding(s) [id number]
== END ==
PROVIDERS: PCP Student in an Organized Health Care Education/Training Program; Referring Provider Student in an Organized Health Care Education/Training Program; Visit Provider Student in an Organized Health Care Education/Training Program
DX: Z12.31 Encounter for screening mammogram for malignant neoplasm of breast (principal)
CPT/HCPCS: 77063; 77067

== ENCOUNTER → 2021-10-04 16:28 | Outpatient (CLI) | payer BC, MEDICARE, SELFPAY ==
[2021-07-18 11:44] VITALS: BMI 40.8
--- NOTE | 2021-10-04 16:30 | DI.MRI.S_ITS ---
PROCEDURE: MR KNEE LT WO CON INDICATIONS: LATERAL MENISCUS TEAR LEFT KNEE TECHNIQUE: Noncontrast sagittal PD fast spin echo and T2 fast spin echo with fat saturation, sagittal 3-D FLASH with fat saturation; coronal T1 spin echo and PD fast spin echo with fat saturation, and axial PD fast spin echo with fat saturation through the knee. COMPARISON: [facility], MR, MR KNEE LT WO CON, 04/13/2019, 16:55. FINDINGS: Image quality: Excellent. Menisci: The is oblique tear involving posterior horn of medial meniscus extending to inferior articulating surface. Oblique tear also seen involving anterior horn of lateral meniscus extending to superior articulating surface. meniscal root ligaments appear intact. Cruciate ligaments: The anterior and posterior cruciate ligaments appear intact. Medial structures: The medial collateral ligament appears intact. The posterior oblique ligament, semimembranosus tendon insertions, oblique popliteal ligament, and meniscocapsular junction appear intact. Visualized portions of the pes anserinus tendons appear normal. No abnormal bursal fluid. Lateral structures: The lateral collateral ligament, long and short heads of the biceps femoris tendon appear intact. The popliteus tendon appears normal; the popliteofibular ligament appears intact. The posterosuperior and anteroinferior popliteomeniscal fascicles appear intact. The arcuate and fabellofibular ligaments appear intact, on either side of the lateral inferior geniculate artery. Iliotibial band appears normal. Anterior structures: The quadriceps and patellar tendons appear intact. Patellar alignment is normal. No femoral trochlear dysplasia or ventral trochlear prominence. No edema in the infrapatellar fat pad. Bones and cartilage: No bone marrow contusions or fractures. Mild tricompartmental osteoarthritis and low-grade chondromalacia is seen more prominent in medial femoral tibial compartment. Joint space: There is small to moderate amount of joint fluid, no gross loose bodies. No Cedillo's cyst. Normal appearing synovial plicae are incidentally noted. IMPRESSION: 1. Subtle oblique tear involving anterior horn of lateral meniscus extending to superior articulating surface. Oblique tear involving posterior horn of medial meniscus extending to inferior articulating surface. 2. Cruciate ligaments are intact. 3. Mild tricompartmental osteoarthritis and low-grade chondromalacia more prominent in medial femoral tibial compartment. Small to moderate joint effusion, no gross loose bodies. Dictated by: Navid Lui M.D. on 10/04/2021 at 17:40 Approved by: Navid Lui M.D. on 10/04/2021 at 17:43
== END ==
PROVIDERS: PCP Student in an Organized Health Care Education/Training Program; Referring Provider Orthopaedic Surgery; Visit Provider Orthopaedic Surgery
DX: S83.282A Other tear of lateral meniscus, current injury, left knee, initial encounter (principal); M17.12 Unilateral primary osteoarthritis, left knee; M94.262 Chondromalacia, left knee; M25.462 Effusion, left knee
CPT/HCPCS: 73721

== ENCOUNTER → 2021-10-25 11:59 | Outpatient (CLI) | payer BC, MEDICARE, SELFPAY ==
[2021-07-18 11:44] VITALS: BMI 40.8
--- NOTE | 2021-10-25 | DI.MRI.S_ITS ---
PROCEDURE: MR LUMBAR SPINE WO/W CON INDICATIONS: Spinal stenosis, lumbar region with neurogenic claudication TECHNIQUE: Noncontrast sagittal T1 spin echo and T2 fast spin echo, sagittal STIR, axial T1 and T2 fast spin echo through the lumbar spine. In cases with scoliosis, additional coronal T2 fast spin echo may be performed. After the administration of contrast, sagittal and axial T1 spin echo with fat saturation through the lumbar spine. COMPARISON: None. FINDINGS: Image quality: Excellent. Alignment and curvature: There is normal bony alignment. Marrow: Vertebral hemangioma noted in the L1 vertebral body. Interbody fusion and posterior darnell and screw instrumentation noted from L3 through S1. No decompressive laminectomy. Right hemilaminectomy noted at L4-5 Spinal cord: Conus medullaris terminates at the L1 level. Visualized spinal cord demonstrates normal signal, without suspicious enhancement. Paraspinous soft tissues: No paravertebral masses or abnormal enhancement. T12-L1: Disc space narrowing and circumferential disc bulge present without central stenosis. There is severe bilateral foraminal stenosis present. L1-L2: Disc space narrowing and circumferential disc bulge with hypertrophic facet joints results in mild central stenosis. Severe bilateral foraminal stenosis present. L2-L3: Disc space narrowing with circumferential disc bulge, hypertrophic facet joints and ligamentum flavum laxity combined with dorsal epidural fat to result in severe central stenosis. Severe bilateral foraminal stenosis is greater on the right. L3-L4: Discectomy and fusion. No central stenosis. Moderate bilateral foraminal stenosis greater on the right. L4-L5: Discectomy and fusion. Has been a right hemilaminectomy. Moderate central stenosis. Hypertrophic facet joints associated with moderate bilateral foraminal stenosis L5-S1: Discectomy and fusion present. No central stenosis. Moderate right and severe left foraminal stenosis. IMPRESSION: 1. Multilevel degenerative disc disease and arthropathy results in varying degrees of central and foraminal stenosis including severe central stenosis in the upper cervical spine, as well as severe L2-3 central stenosis 2. Lower lumbar spine discectomy and fusion with posterior darnell and screw instrumentation Approved by: Zeferino Vargas M.D. on 10/29/2021 at 15:03
== END ==
PROVIDERS: PCP Student in an Organized Health Care Education/Training Program; Referring Provider Orthopaedic Surgery; Visit Provider Orthopaedic Surgery
DX: M48.062 Spinal stenosis, lumbar region with neurogenic claudication (principal); M51.36 Other intervertebral disc degeneration, lumbar region; M47.816 Spondylosis without myelopathy or radiculopathy, lumbar region; Z98.1 Arthrodesis status
CPT/HCPCS: 72158; A9579

== ENCOUNTER → 2022-01-01 10:38 | Outpatient (CLI) | payer BC, MEDICARE, SELFPAY ==
[2021-07-18 11:44] VITALS: BMI 40.8
[2022-01-01 12:40] LABS: Ferritin 30 ng/mL (11-264)
[2022-01-01 17:32] LABS: Vitamin D 25 Hydroxy (D3) 44.7 ng/mL (30.0-100.0)
[2022-01-02 08:50] LABS: Calcium 10.6 mg/dL (8.7-10.3); Parathyroid Hormone, Intact 28 pg/mL (15-65)
== END ==
PROVIDERS: PCP Student in an Organized Health Care Education/Training Program; Referring Provider Student in an Organized Health Care Education/Training Program; Visit Provider Surgery
DX: K91.2 Postsurgical malabsorption, not elsewhere classified (principal)
CPT/HCPCS: 36415; 82306; 82310; 82728; 83970

== ENCOUNTER → 2022-02-04 13:13 | Outpatient (CLI) | payer BC, MEDICARE, SELFPAY ==
[2021-07-18 11:44] VITALS: BMI 40.8
--- NOTE | 2022-02-04 13:16 | DI.RAD.S_ITS ---
PROCEDURE: XR CHEST 2V INDICATIONS: Air hunger TECHNIQUE: 2 views of the chest were acquired. COMPARISON: [facility], CT, CT ABDOMEN PELVIS WO/W CON, 03/10/2019, 12:03. FINDINGS: Surgical changes and devices: Lumbar spine fixation hardware incompletely visualized. Lungs and pleura: Lungs are clear. No pleural effusions or pneumothorax. Chronic elevation the right hemidiaphragm. Mediastinum: Mediastinal contours are normal. Heart size is normal. Bones and chest wall: No suspicious bony abnormalities. Soft tissues appear unremarkable. IMPRESSION: Chronic elevation right hemidiaphragm and no acute cardiopulmonary disease identified. Dictated by: Gume Gregorio Andrew Interpreted: Elizabeth Garcia MD on 02/04/2022 at 14:12 Transcribed by: MONTRELL on 02/04/2022 at 14:13 Approved by: Elizabeth Garcia M.D. on 02/05/2022 at 8:14
== END ==
PROVIDERS: PCP Student in an Organized Health Care Education/Training Program; Referring Provider Student in an Organized Health Care Education/Training Program; Visit Provider Student in an Organized Health Care Education/Training Program
DX: R09.89 Other specified symptoms and signs involving the circulatory and respiratory systems (principal)
CPT/HCPCS: 71046

== ENCOUNTER → 2022-04-09 16:05 | Outpatient (CLI) | payer BC, MEDICARE, SELFPAY ==
[2021-07-18 11:44] VITALS: BMI 40.8
[2022-04-09 17:57] LABS: Ferritin 41 ng/mL (11-264)
== END ==
PROVIDERS: PCP Student in an Organized Health Care Education/Training Program; Referring Provider Surgery; Visit Provider Surgery
DX: K91.2 Postsurgical malabsorption, not elsewhere classified (principal)
CPT/HCPCS: 36415; 82728

== ENCOUNTER → 2022-04-18 13:07 | Outpatient (CLI) | payer BC, MEDICARE, SELFPAY ==
[2021-07-18 11:44] VITALS: BMI 40.8
--- NOTE | 2022-04-18 13:12 | DI.MG.S_ITS ---
BILATERAL DIGITAL SCREENING MAMMOGRAM 3D/2D WITH CAD: 04/18/2022 CLINICAL: Routine screening. Comparison is made to exams dated: 04/05/2021 mammogram, 10/13/2019 mammogram, and 04/03/2018 mammogram - [facility]. There are scattered areas of fibroglandular density in both breasts (category b / 25%-50% glandular tissue). Current study was also evaluated with a Computer Aided Detection (CAD) system. There is a benign focal asymmetry in the right breast. There also are benign calcifications in the right breast. Additionally, there is a biopsy clip in the right breast. No significant masses, calcifications, or other findings are seen in either breast. There has been no significant interval change. IMPRESSION: BENIGN There is no mammographic evidence of malignancy. A 1 year screening mammogram is recommended. Based on the Tyrer Cuzick model (a risk assessment model) the patient's lifetime risk is 9.7% and her 10 year risk is 4.2%. According to the ACR, ACS, and NCCN guidelines, an annual breast MRI exam along with mammogram is recommended if the patient's lifetime risk is 20% or greater. This exam was interpreted at Station ID: [id number]. NOTE: For mammograms, a report in lay terms will be sent to the patient. Approximately 15% of breast malignancies will not be visualized mammographically. In the management of a palpable breast mass, a negative mammogram must not discourage biopsy of a clinically suspicious lesion. Electronically Signed By: Heaven bolivar/sandro:04/18/2022 13:47:08 letter sent: Normal Exam ACR BI-RADS Category 2: Benign Finding(s) 3342F
== END ==
PROVIDERS: PCP Student in an Organized Health Care Education/Training Program; Referring Provider Student in an Organized Health Care Education/Training Program; Visit Provider Student in an Organized Health Care Education/Training Program
DX: Z12.31 Encounter for screening mammogram for malignant neoplasm of breast (principal)
CPT/HCPCS: 77063; 77067

== ENCOUNTER → 2022-08-05 11:10 | Outpatient (CLI) | payer OTHER, MEDICARE, SELFPAY ==
[2021-07-18 11:44] VITALS: BMI 40.8
--- NOTE | 2022-08-05 11:13 | DI.RAD.S_ITS ---
PROCEDURE: FL BARIUM SWALLOW INDICATIONS: Globus sensation COMPARISON: [facility], CR, XR CHEST 2V, 02/04/2022, 13:21. [facility] [place], RF, LUMBAR SPINE INTERIAMINAR, 07/21/2022, 10:54. FINDINGS: Function: There is mild esophageal dysmotility. Severe gastroesophageal reflux. There is normal transit of a calibrated barium tablet through the esophagus into the stomach. Morphology: Air-contrast images demonstrate normal mucosal morphology. Single contrast views show no esophageal strictures, extrinsic mass effects, or diverticula. Postsurgical changes related to gastric bypass and gastrojejunostomy. IMPRESSION: 1. Mild esophageal dysmotility. 2. Severe gastroesophageal reflux. 3. Postsurgical changes in stomach. Dictated by: Mani Perez M.D. on 08/05/2022 at 11:55 Approved by: Mani Perez M.D. on 08/05/2022 at 11:56
== END ==
PROVIDERS: PCP Student in an Organized Health Care Education/Training Program; Referring Provider Student in an Organized Health Care Education/Training Program; Visit Provider Student in an Organized Health Care Education/Training Program
DX: K22.4 Dyskinesia of esophagus (principal); K21.9 Gastro-esophageal reflux disease without esophagitis; R09.89 Other specified symptoms and signs involving the circulatory and respiratory systems
CPT/HCPCS: 74220

== ENCOUNTER → 2023-04-10 10:02 | Outpatient (CLI) | payer OTHER, MEDICARE, SELFPAY ==
[2022-10-02 17:43] VITALS: BMI 40.8
[2023-04-10 11:27] LABS: Cholesterol 211 mg/dL (140-199); HDL Cholesterol 59 mg/dL (40-60); LDL Cholesterol Calculated 119 mg/dL (<100); Triglycerides 166 mg/dL (35-150)
[2023-04-10 11:59] LABS: TSH w/ Reflex to FT4 1.27 uIU/mL (0.47-4.68)
== END ==
PROVIDERS: PCP Family Medicine; Referring Provider Family Medicine; Visit Provider Family Medicine
DX: R53.83 Other fatigue (principal)
CPT/HCPCS: 36415; 80061; 84443

== ENCOUNTER → 2023-04-22 11:32 | Outpatient (CLI) | payer OTHER, MEDICARE, SELFPAY ==
[2022-10-02 17:43] VITALS: BMI 40.8
[2023-04-22 12:28] LABS: Add Manual Diff / Slide Review NO; Basophils Absolute Auto 0 /uL (0-100); Basophils Percent Auto 0.8 % (0-2); Eosinophils Absolute Auto 200 /uL (0-450); Eosinophils Percent Auto 3.1 % (2-4); Hemoglobin 14.1 g/dL (12.0-16.0); Lymphocytes Absolute Auto 1800 /uL (1100-4500); Lymphocytes Percent Auto 32.4 % (25-40); Mean Corpuscular HGB Conc 33.5 % (30-36); Mean Corpuscular Volume 86.7 fL (80-100); Monocytes Absolute Auto 300 /uL (0-900); Monocytes Percent Auto 5.5 % (3-14); Neutrophils Absolute Auto 3200 /uL (1500-7000); Neutrophils Percent Auto 58.2 % (50-75); Platelet Count 202 X10^3/uL (150-400); Red Blood Cell Count 4.85 X10^6/uL (4.0-5.2); Red Cell Distribution Width 13.5 % (11.6-14.8); White Blood Cell Count 5.5 X10^3/uL (4.5-11.0)
[2023-04-22 13:47] LABS: HEMOLYSIS < 15 (0-50); Iron 85 ug/dL (37-170)
[2023-04-22 14:02] LABS: Percent Iron Saturation 28 % (15-50); Total Iron Binding Capacity 303 ug/dL (265-497); Transferrin 269 mg/dL (206-381)
[2023-04-22 14:22] LABS: Alanine Aminotransferase 29 IU/L (<35); Albumin 4.2 g/dL (3.5-5.0); Albumin Globulin Ratio 1.4 (1.0-2.8); Alkaline Phosphatase 66 U/L (38-126); Aspartate Aminotransferase 31 IU/L (14-36); BUN Creatinine Ratio 24.2 (6-22); Bilirubin Total 0.4 mg/dL (0.2-1.3); Blood Urea Nitrogen 16 mg/dL (7-17); Calcium 9.9 mg/dL (8.4-10.2); Carbon Dioxide 34 mmol/L (22-32); Chloride 99 mmol/L (98-107); Estimated Glomerular Filt Rate > 60 mL/min (>60); Globulin 2.9 g/dL (1.7-4.1); Glucose 79 mg/dL (80-110); HEMOLYSIS < 15 (0-50); Magnesium 1.9 mg/dL (1.6-2.3); Potassium 4.6 mmol/L (3.4-5.1); Sodium 138 mmol/L (137-145); Total Protein 7.1 g/dL (6.3-8.2)
[2023-04-22 14:55] LABS: Ferritin 20 ng/mL (11-264)
[2023-04-22 15:26] LABS: Folate > 20.0 ng/mL (2.76-20.0); Vitamin B12 > 1000 pg/mL (239-931)
[2023-04-22 17:07] LABS: Vitamin D 25 Hydroxy (D3) 31.2 ng/mL (30.0-100.0)
[2023-04-24 06:40] LABS: Parathyroid Hormone Int 34 pg/mL (15-65)
[2023-04-25 16:47] LABS: Vitamin B1 219.4 nmol/L (66.5-200.0)
[2023-04-29 23:15] LABS: Vitamin A 94.3 ug/dL (22.0-69.5)
== END ==
PROVIDERS: PCP Family Medicine; Referring Provider Nurse Practitioner Family; Visit Provider Nurse Practitioner Family
DX: K91.2 Postsurgical malabsorption, not elsewhere classified (principal)
CPT/HCPCS: 36415; 80053; 82306; 82607; 82728; 82746; 83540; 83550; 83735; 83970; 84425; 84590; 85025

== ENCOUNTER → 2023-06-19 14:26 | Outpatient (CLI) | payer OTHER, MEDICARE, SELFPAY ==
[2022-10-02 17:43] VITALS: BMI 40.8
--- NOTE | 2023-06-19 14:31 | DI.MG.S_ITS ---
BILATERAL DIGITAL SCREENING MAMMOGRAM 3D/2D WITH CAD: 06/19/2023 CLINICAL: Routine screening. Comparison is made to exams dated: 04/18/2022 mammogram, 04/05/2021 mammogram, 10/13/2019 mammogram, 04/21/2018 mammogram, and 04/03/2018 mammogram - [facility]. There are scattered areas of fibroglandular density in both breasts (category b / 25%-50% glandular tissue). Current study was also evaluated with a Computer Aided Detection (CAD) system. There is a benign focal asymmetry in the right breast. There also are benign calcifications in the right breast. Additionally, there is a biopsy clip in the right breast. No significant masses, calcifications, or other findings are seen in either breast. There has been no significant interval change. IMPRESSION: BENIGN There is no mammographic evidence of malignancy. A 1 year screening mammogram is recommended. Based on the Tyrer Cuzick model (a risk assessment model) the patient's lifetime risk is 9.4% and her 10 year risk is 4.2%. According to the ACR, ACS, and NCCN guidelines, an annual breast MRI exam along with mammogram is recommended if the patient's lifetime risk is 20% or greater. This exam was interpreted at Station ID: [id number]. NOTE: For mammograms, a report in lay terms will be sent to the patient. Approximately 15% of breast malignancies will not be visualized mammographically. In the management of a palpable breast mass, a negative mammogram must not discourage biopsy of a clinically suspicious lesion. Electronically Signed By: Daniele hodge/sandro:06/19/2023 21:23:10 letter sent: Normal Exam ACR BI-RADS Category 2: Benign Finding(s) 3342F
== END ==
LOC: MAMMO 14:30
PROVIDERS: PCP Family Medicine; Referring Provider Family Medicine; Visit Provider Family Medicine
DX: Z12.31 Encounter for screening mammogram for malignant neoplasm of breast (principal); R92.323 Mammographic fibroglandular density, bilateral breasts
CPT/HCPCS: 77063; 77067

== ENCOUNTER → 2023-11-18 12:48 | Outpatient (CLI) | payer OTHER, MEDICARE, SELFPAY ==
[2022-10-02 17:43] VITALS: BMI 40.8
--- NOTE | 2023-11-18 12:51 | DI.CT.S_ITS ---
PROCEDURE: CT ABDOMEN PELVIS WO CON INDICATIONS: hx of kidney stones; worsening sxs TECHNIQUE: Axial sections were acquired from the lung bases to the pubic symphysis. Coronal and sagittal reformats were performed. For radiation dose reduction, the following was used: automated exposure control, adjustment of mA and/or kV according to patient size. COMPARISON: [facility], CT, CT ABDOMEN PELVIS WO/W CON, 03/10/2019, 12:03. FINDINGS: Image quality: There is artifact associated with the metallic hardware. Lower Chest: There is a band of atelectasis seen involving the right lower lobe. URINARY: Right Kidney: No stones or hydronephrosis. Right Ureter: No hydroureter. Left Kidney: No stones or hydronephrosis. Left Ureter: No hydroureter. Bladder: Normal wall thickness. No stones. ABDOMEN: Liver: No contour-deforming solid mass. Gallbladder: No radiopaque gallstones or wall thickening. Biliary ducts: No biliary dilation. Apparent biliary gas can be seen within the liver. Pancreas: No ductal dilation. Spleen: Size is within normal limits. Adrenal Glands: No adrenal nodules. Stomach and Bowel: Bariatric surgery can be seen. Colonic diverticulosis is seen, without findings of active diverticulitis. No significant colonic abnormality is seen. No dilated loops of small bowel are seen. Peritoneum: No abnormal intraperitoneal fluid. No free air. Ventral Wall: No hernia. Abdominal Nodes: No enlarged retroperitoneal or mesenteric lymph nodes. Vessels: Aorta and inferior vena cava are normal in size. PELVIS: Pelvic Organs: The uterus appears normal for age. No adnexal masses are seen. Pelvic Nodes: Unremarkable. Miscellaneous: No inguinal hernias are seen. Bones: Lumbosacral fixation hardware can be seen. Relatively prominent degenerative changes can be seen. IMPRESSION: No obstructing stones or hydronephrosis. The previously seen right UPJ stone has resolved. Apparent biliary gas can be seen within the liver. Additional findings: Right lower lobe atelectasis Lumbosacral fixation hardware Dictated by: Alexi Russell M.D. on 11/18/2023 at 14:30 Approved by: Alexi Russell M.D. on 11/18/2023 at 14:33
== END ==
PROVIDERS: PCP Family Medicine; Referring Provider Family Medicine; Visit Provider Family Medicine
DX: J98.11 Atelectasis (principal); K57.90 Diverticulosis of intestine, part unspecified, without perforation or abscess without bleeding; M54.9 Dorsalgia, unspecified; R10.9 Unspecified abdominal pain; Z87.442 Personal history of urinary calculi; Z98.84 Bariatric surgery status
CPT/HCPCS: 74176

== ENCOUNTER → 2023-11-27 14:42 | Outpatient (CLI) | payer OTHER, MEDICARE, SELFPAY ==
[2022-10-02 17:43] VITALS: BMI 40.8
--- NOTE | 2023-11-27 14:45 | DI.MRI.S_ITS ---
PROCEDURE: MR LUMBAR SPINE WO CON INDICATIONS: SPINAL STENOSIS,LUMBER REGION TECHNIQUE: Noncontrast sagittal T1 spin echo and T2 fast echo, sagittal STIR, and T2 fast spin echo through the lumbar spine. In cases with scoliosis, additional coronal T2 fast spin echo may be performed. COMPARISON: [facility], MR, MR LUMBAR SPINE WO/W CON, 10/25/2021, 12:27. [facility], MR, MR LUMBAR SPINE WO CON, 01/11/2019, 17:40. [facility], CT, CT ABDOMEN PELVIS WO CON, 11/18/2023, 12:56. FINDINGS: Image quality: Diagnostic Alignment: Trace retrolisthesis of L1 on L2. Marrow: Possible hemangioma again seen at L1. No acute fracture. Cord: Conus terminates in normal position. There is clumping of the cauda equina nerve roots at multiple levels Soft tissues: Lower lumbar posterior decompression changes and edema. No drainable fluid collection. Specific levels: T11-T12: Small disc bulge and paracentral protrusion. Mild central narrowing. Facet arthropathy. Moderate bilateral neural foraminal narrowing. T12-L1: Small diffuse disc bulge. Facet arthropathy. Mild central narrowing. Moderate right and mild left neural foraminal narrowing. L1-L2: Moderate facet arthropathy. Diffuse disc bulge. Ligamentum hypertrophy. Bhcb-oc-ygvjrbuk central narrowing involving both subarticular recesses. Moderate to severe right and left neural foraminal narrowing. L2-L3: Diffuse disc bulge, significant. Central protrusion. Ligamentum hypertrophy. Facet arthropathy. Severe central narrowing. Moderate to severe right and left neural foraminal narrowing. Fusion level from L3-S1. there is left subarticular recess narrowing at L4-L5 and mild central narrowing. There is clumping of the cauda equina nerve roots at the level of L4-L5. Jejn-my-qzkoesvs multilevel neural foraminal narrowing. IMPRESSION: Postsurgical changes. Advanced degenerative changes above the level of fusion have slightly progressed, with particular involvement at L2-L3. 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 Other findings above Dictated by: Sergio Bernstein M.D. on 11/27/2023 at 21:38 Approved by: Sergio Bernstein M.D. on 11/27/2023 at 21:49
== END ==
LOC: MRI 14:45
PROVIDERS: PCP Family Medicine; Referring Provider Physical Medicine & Rehabilitation; Visit Provider Physical Medicine & Rehabilitation
DX: M48.062 Spinal stenosis, lumbar region with neurogenic claudication (principal); M47.816 Spondylosis without myelopathy or radiculopathy, lumbar region; M51.36 Other intervertebral disc degeneration, lumbar region; M51.26 Other intervertebral disc displacement, lumbar region; Z98.1 Arthrodesis status
CPT/HCPCS: 72148

== ENCOUNTER → 2023-12-10 08:25 | Outpatient (CLI) | payer OTHER, MEDICARE, SELFPAY ==
[2022-10-02 17:43] VITALS: BMI 40.8
--- NOTE | 2023-12-10 08:31 | DI.CT.S_ITS ---
PROCEDURE: CT CHEST W CON INDICATIONS: Persistent atelectasis right lower lobe TECHNIQUE: After the administration of intravenous contrast, 5 mm thick sections acquired from the pulmonary apices to the posterior costophrenic angles. 1 mm axial lung, 5 mm thick coronal and sagittal reformats and 7 mm axial MIP were acquired. For radiation dose reduction, the following was used: automated exposure control, adjustment of mA and/or kV according to patient size. COMPARISON: None. FINDINGS: Image quality: Diagnostic. Lower Neck: No enlarged lymph nodes. Thyroid: No thyroid nodules which require sonographic follow up, per consensus guidelines. Axillae: No enlarged lymph nodes. Chest Wall: There is a wire or catheter coursing within the anterior chest wall on the right. Bones: Multilevel degenerative disc disease throughout the thoracic spine. Bone cyst versus osseous hemangioma within a vertebral body in the lower thoracic spine. Lungs and Pleura: No pneumothorax . Small right pleural effusion. There is pleural thickening within the minor fissure and right oblique fissure. There is also diffuse bronchial wall thickening with areas of mucous secretions within the bronchials. There is centrilobular emphysema. There is asymmetric elevation of the right hemidiaphragm. Atelectasis along the dependent portions of the lungs. No suspicious pulmonary nodule or lung mass. Heart: Heart size is normal. No pericardial effusion. Thoracic Vessels: The aorta and pulmonary arteries demonstrate normal size. Mediastinum and Antonia: No enlarged lymph nodes. Esophagus: No wall thickening. Small hiatal hernia. Upper Abdomen: Prior surgery to the stomach. Hydropic gallbladder. Layering sludge is seen within the gallbladder. IMPRESSION: There is diffuse bronchial wall thickening and bronchial secretions. This is suspicious for bronchiolitis. 2. Centrilobular emphysema. 3. Hydropic gallbladder. A large amount of layering sludge is present in the gallbladder. 4. Small right pleural effusion with adjacent compressive atelectasis. Dictated by: Abiodun Perry M.D. on 12/11/2023 at 11:19 Approved by: Abiodun Montalvo M.D. on 12/11/2023 at 12:11
[2023-12-10 08:54] LABS: Estimated Glomerular Filt Rate > 60 mL/min (>60)
== END ==
LOC: CT 08:29
PROVIDERS: Radiology Diagnostic Radiology; PCP Family Medicine; Referring Provider Family Medicine; Visit Provider Family Medicine
DX: J98.11 Atelectasis (principal); J98.6 Disorders of diaphragm; M51.34 Other intervertebral disc degeneration, thoracic region; K44.9 Diaphragmatic hernia without obstruction or gangrene; K82.8 Other specified diseases of gallbladder; J90 Pleural effusion, not elsewhere classified; J43.2 Centrilobular emphysema
CPT/HCPCS: 36415; 71260; 82565; Q9967

== ENCOUNTER → 2023-12-31 09:47 | Outpatient (CLI) | payer OTHER, MEDICARE, SELFPAY ==
[2022-10-02 17:43] VITALS: BMI 40.8
== END ==
LOC: RESP 09:49
PROVIDERS: PCP Family Medicine; Referring Provider Family Medicine; Visit Provider Family Medicine
DX: J44.9 Chronic obstructive pulmonary disease, unspecified (principal); J43.8 Other emphysema; R06.02 Shortness of breath; J45.998 Other asthma; R05.9 Cough, unspecified
CPT/HCPCS: 94060; 94726; 94729

== ENCOUNTER → 2024-02-08 13:27 | Outpatient (CLI) | payer OTHER, MEDICARE, SELFPAY ==
[2022-10-02 17:43] VITALS: BMI 40.8
--- NOTE | 2024-02-08 13:30 | DI.RAD.S_ITS ---
PROCEDURE: XR KNEE LT 3V INDICATIONS: worsening pain left leg knee TECHNIQUE: 3 views of the knee were acquired. COMPARISON: None. FINDINGS: Bones: There are no osseous abnormalities. Joints: The tibialfemoral and patellofemoral joints show mild degeneration . A 3 mm calcification in the infrapatellar region may represent a loose body There are no effusions. Soft tissues: Normal IMPRESSION: 3 mm calcification in the infrapatellar region could represent a loose body Dictated by: Piotr Rodriguez M.D. on 02/09/2024 at 10:32 Approved by: Piotr Rodriguez M.D. on 02/09/2024 at 10:34
== END ==
LOC: RAD 13:30
PROVIDERS: PCP Family Medicine; Referring Provider Family Medicine; Visit Provider Family Medicine
DX: S89.80XA Other specified injuries of unspecified lower leg, initial encounter (principal); M25.562 Pain in left knee; W18.30XA Fall on same level, unspecified, initial encounter
CPT/HCPCS: 73562

== ENCOUNTER → 2024-04-12 11:28 | Outpatient (CLI) | payer OTHER, MEDICARE, SELFPAY ==
[2022-10-02 17:43] VITALS: BMI 40.8
== END ==
PROVIDERS: PCP Family Medicine; Visit Provider Family Medicine
DX: J02.9 Acute pharyngitis, unspecified (principal)
CPT/HCPCS: 87070

== ENCOUNTER → 2024-05-18 13:20 | Outpatient (CLI) | payer OTHER, MEDICARE, SELFPAY ==
[2022-10-02 17:43] VITALS: BMI 40.8
[2024-05-19 12:39] LABS: Fecal Immunochemical Test Negative (Negative)
== END ==
PROVIDERS: PCP Family Medicine; Referring Provider Family Medicine; Visit Provider Family Medicine
DX: Z12.11 Encounter for screening for malignant neoplasm of colon (principal)
CPT/HCPCS: 82274

== ENCOUNTER → 2024-08-09 | Outpatient (CLI) | payer OTHER, MEDICARE, SELFPAY ==
[2022-10-02 17:43] VITALS: BMI 40.8
--- NOTE | 2024-08-09 11:31 | DI.MG.S_ITS ---
MM screening mammo BI: 08/09/2024. BI-RADS: 2 CLINICAL: 64-year old female for bilateral screening mammogram. Tyrer-Cuzick lifetime risk of 3.9%. No personal or first-degree family history of breast cancer. The patient had a prior right breast biopsy. PRIOR EXAMS 06/19/2023, 04/18/2022, 04/05/2021, 10/13/2019, 05/03/2018, 04/21/2018, 04/03/2018, 02/16/2017, 02/14/2016. MAMMOGRAPHY TECHNIQUE: 2D and 3D (tomosynthesis) digital mammographic views obtained, with additional images as needed for full coverage. Current study was also evaluated with a Computer Aided Detection (CAD) system. DENSITY B. There are scattered areas of fibroglandular density. MAMMOGRAPHY FINDINGS Right: Biopsy marker present on the right. Benign-appearing asymmetry and calcification noted on the right. There are no suspicious masses, calcifications, or other findings in the breast. No significant change from comparison. Left: Benign-appearing calcification noted on the left. There are no suspicious masses, calcifications, or other findings in the breast. No significant change from comparison. IMPRESSION: * No evidence of malignancy with benign findings. RECOMMENDATIONS Bilateral * Annual screening mammography. OVERALL ASSESSMENT CATEGORY BI-RADS-2: Benign. The [employer] recommends annual screening mammography beginning at age 40 for women with average risk of breast cancer. ELECTRONICALLY SIGNED: Sarah Pete M.D. on 08/09/2024 at 12:48:16 PM PT Interpreting Station ID: [id number]
== END ==
PROVIDERS: PCP Family Medicine; Referring Provider Family Medicine; Visit Provider Family Medicine
DX: Z12.31 Encounter for screening mammogram for malignant neoplasm of breast (principal)
CPT/HCPCS: 77063; 77067

== ENCOUNTER → 2025-04-18 11:18 | Outpatient (CLI) | payer OTHER, MEDICARE, SELFPAY ==
[2024-11-22 10:24] VITALS: BMI 40.8
--- NOTE | 2025-04-18 11:20 | DI.MRI.S_ITS ---
PROCEDURE: MR LUMBAR SPINE WO CON INDICATIONS: radiculopathy lumbar region TECHNIQUE: Noncontrast sagittal T1 spin echo and T2 fast echo, sagittal STIR, and T2 fast spin echo through the lumbar spine. In cases with scoliosis, additional coronal T2 fast spin echo may be performed. COMPARISON: None available at the time of dictation. FINDINGS: Image quality: Excellent Levoscoliosis lumbar spine, centered at L2-3. Mild retrolisthesis of T12 on L1, L1 on L2. Grade 1 anterolisthesis L4 on L5. Vertebral body height of the lumbar spine are well maintained. Posterior fusion instrumentation with interbody spacer from L3-S1. Multilevel fibrovascular endplate change, most pronounced and marked at L2-3. Vertebral hemangioma in L1 vertebral body. Multilevel disc bulge and disc desiccation. Conus terminates at the level of L1-2, and is unremarkable. Right neural foraminal stenosis: Mild at T9-10, severe at T11-T12, moderate at T12-L1. Severe at L1-2, L2-3, moderate at L3-4 and mild at L5-S1. Left neural foraminal stenosis: Moderate at T10-T11, T11-T12, severe at L1-2, mild at L2-3, L4-5, and L5-S1. Axial images: T10-T11: Disc bulge. Mild bilateral facet arthropathy. Mild central canal stenosis. T11-T12: Disc bulge. Moderate bilateral facet arthropathy. Moderate central canal stenosis. Epidural lipomatosis. T12-L1: Posterior disc uncovering. No central canal stenosis. L1-2: Moderate bilateral facet arthropathy. Posterior disc osteophyte complex. Mild central canal stenosis. L2-3: Severe right, mild left facet arthropathy. Disc bulge. Epidural lipomatosis. Severe central canal stenosis. L3-4: No central canal stenosis. L4-5: Likely right laminectomy. Posterior disc uncovering. Mild central canal stenosis. L5-S1: No central canal stenosis. Visualized sacrum is intact. IMPRESSION: 1. Postprocedure changes 2. Severe central canal stenosis at L2-3. 3. Multilevel significant neural foraminal stenosis as described above. Dictated by: Abbey Duran M.D. on 04/18/2025 at 12:44 Approved by: Abbey Duran M.D. on 04/18/2025 at 13:00
== END ==
LOC: MRI 11:20
PROVIDERS: PCP Family Medicine; Referring Provider Physical Medicine & Rehabilitation; Visit Provider Physical Medicine & Rehabilitation
DX: M47.814 Spondylosis without myelopathy or radiculopathy, thoracic region (principal); M51.24 Other intervertebral disc displacement, thoracic region; M48.04 Spinal stenosis, thoracic region; M47.26 Other spondylosis with radiculopathy, lumbar region; M51.16 Intervertebral disc disorders with radiculopathy, lumbar region; M43.16 Spondylolisthesis, lumbar region; M48.061 Spinal stenosis, lumbar region without neurogenic claudication; E88.2 Lipomatosis, not elsewhere classified; Z98.1 Arthrodesis status
CPT/HCPCS: 72148